=== PATIENT | female | born 1945 | race Caucasian/White ===

== ENCOUNTER → 2017-04-06 | Outpatient (CLI) | payer MEDICARE, OTHER ==
[~2017-04-06] MED LIST: LORT7.5T3 PO
[2017-04-06 14:17] LABS: BLOOD GAS BASE EXCESS 15.3 mmol/L (-2-2); BLOOD GAS CARBOXYHEMOGLOBIN 1.9 % (0-4); BLOOD GAS HCO3 40 mmol/L (22-26); BLOOD GAS METHEMOGLOBIN 1.2 % (0-2); BLOOD GAS O2 HGB SATURATION 84 % (90-100); BLOOD GAS PCO2 61 mmHg (38-42); BLOOD GAS PO2 49 mmHg (61-120); BLOOD GAS TOTAL HGB 13.6 G/DL (12.0-16.0)
[2017-04-06 14:19] LABS: CRITICAL VALUE YES; DRAW SITE LT RADIAL; FIO2 21 %; NUMBER OF ARTERIAL PUNCTURES 2; STAT YES; ULNAR PULSE PRESENT
== END ==
LOC: HRSP 13:08
DX: J44.9 Chronic obstructive pulmonary disease, unspecified (principal); R06.00 Dyspnea, unspecified
CPT/HCPCS: 36600; 82805; 94060

== ENCOUNTER 2017-04-14 10:49 | Inpatient (IN) | payer MEDICARE, OTHER ==
[2017-04-14] VITALS (11 sets, daily range): BP systolic 87–188; BP diastolic 50–85; PULSE 74–111; RESP 18–24; TEMP 96.8–97.4; O2SAT 95–100
[~2017-04-14] VITALS: Ht 157.5 cm; Wt 81.2 kg
[~2017-04-14 10:49] MED LIST changes: +ALBU0.08 INH; +ASPI-516 CHEW; +CALC600T5; +FURO1TAB62 PO; +GREE250C2; +LOSA100T PO; +MEDR4TAB PO; +METO50TA PO; +NYST1000 SWISH-SWAL; +OMEGCAP PO; +OXYGENDME NAS.CANULA; +POTA-163 PO; +SIMV20TA PO; +TIOT1AER INH; +VITA1000 PO
--- NOTE | 2017-04-14 11:51 | RADRPT ---
EXAM DATE/TIME: 04/14/2017 11:37 [facility] COMPARISON: CHEST SINGLE AP, March 16, 2017, 6:36. INDICATIONS : Shortness of breath. MEDICAL HISTORY : Hypertension. SURGICAL HISTORY : Appendectomy. ENCOUNTER: Initial ACUITY: 1 day PAIN SCORE: Non-responsive. LOCATION: Bilateral chest FINDINGS: No focal consolidation or effusion. Minimal basilar atelectasis. Heart size normal. No pneumothorax. CONCLUSION: 1. Minimal basilar atelectasis. Tim Mcarthur MD on April 14, 2017 at 11:49 Board Certified Radiologist. This report was verified electronically.
--- NOTE | 2017-04-14 11:57 | PD ---
HPI Chief Complaint: Respiratory Symptoms Time Seen by Provider: 11:14 Travel History International Travel<30 days: No Contact w/Intl Traveler<30days: No Traveled to known affect area: No History of Present Illness HPI Patient is a 72-year-old female presenting to emergency Department for evaluation of weakness, shortness of breath, edema. Family is at bedside states that she fell this morning, fall was unwitnessed patient has a contusion to her forehead. Apparently there was no loss of consciousness. Patient denies any headache at this time. She states that she feels very tired and weak. Patient has severe COPD and is oxygen dependent. Family reports that she saw her primary doctor and her Lasix was increased to twice daily but it has not helped the edema. They report discoloration on the plantar aspect of her feet from the foot pad distally. There is also some petechial discoloration to her lower leg. Patient denies any chest pain, abdominal pain, nausea, vomiting, headache, fever, chills, dysuria. Her past medical history significant for hypertension, COPD, hyperlipidemia. She is on aspirin therapy. [facility] Past Medical History Anxiety: No Depression: No Cancer: No High Cholesterol: Yes COPD: Yes (O2 dependent) Coronary Artery Disease: No Diabetes: No Diminished Hearing: No Endocrine: No Genitourinary: Yes Hypertension: Yes Immune Disorder: No Kidney Stones: Yes Medical other: Yes (peripheral edema) Musculoskeletal: No Neurologic: No Psychiatric: No Reproductive: No Respiratory: Yes ?: Not Past Surgical History Abdominal Surgery: Yes (hernia repair) Appendectomy: Yes Family History Family Hypercholesterolemia: Yes Social History Alcohol Use: No Tobacco Use: No Substance Use: No Allergies-Medications (Allergen,Severity, Reaction): Coded Allergies: prednisone (Verified Allergy, Mild, Rash, 04/11/17) Reported Meds & Prescriptions Reported Meds & Active Scripts Active Nystatin Liq 100,000 unit/ml Susp 5 Ml SWISH-SWAL QID Use for 7 days. Potassium Chloride ER (Potassium Chloride) 20 Meq Tab 20 Meq PO DAILY Metoprolol Tartrate 50 Mg Tab 50 Mg PO BID Losartan (Losartan Potassium) 100 Mg Tab 100 Mg PO DAILY Medrol (Methylprednisolone) 4 Mg Tab 4 Mg PO DAILY 4 tablets bid x 4 days then 3 tablets bid x 4 days 2 tablets bid x 3 days 1 tablet bid x 3 days then 1 tablet daily x 5 days Oxygen (O2) Device Liter JASEN.CANULA CONTINUOUS Oxygen Concentrator Portable Gaseous 2 L/min via Nasal Canula Continuous For 99 months Albuterol Neb (Albuterol Sulfate) 2.5 Mg/3 Ml Neb 2.5 Mg INH Q2HR NEB PRN MDD 4 30 Days As directed Reported Lasix (Furosemide) 20 Mg Tab 20 Mg PO BID Xanax (Alprazolam) 0.25 Mg Tab 0.25 Mg PO TID PRN Stiolto Respimat Inh (Tiotropium-Olodaterol Inh) 2.5-2.5 Mcg/Act Aero 2 Puff INH DAILY Green Tea (Green Tea [place] Extract) 250 Mg Capsule 500 BID Vitamin D-1000 (Cholecalciferol) 1,000 Unit Tab 2,000 Units PO DAILY [place]-3 Fish Oil/Vitamin (Fish Oil-Cholecalciferol) 1,000-1,000 Mg Cap 1 Cap PO DAILY Calcium (Calcium Carbonate) 600 Mg Calcium (1500 Mg) Tab BID Aspirin 81 Mg Chew 81 Mg CHEW HS Simvastatin 20 Mg Tab 20 Mg PO DAILY Review of Systems Except as stated in HPI: all other systems reviewed are Neg General / Constitutional: No: Fever, Chills HENT: No: Headaches Cardiovascular: No: Chest Pain or Discomfort Respiratory: Positive: Shortness of Breath, Orthopnea, No: Cough Gastrointestinal: No: Nausea, Abdominal Pain Genitourinary: No: Dysuria Musculoskeletal: Positive: Edema, No: Myalgias Skin: Positive Change in Pigmentation Neurologic: Positive: Weakness, No: Dizziness, Headache, Change in Mentation Hematologic/Lymphatic: Positive: Easy Bruising Physical Exam Narrative GENERAL: Overweight, well-developed, chronically ill-appearing female. SKIN: Warm and dry. Petechial rash to lateral aspect of right lower leg and left lower leg. Weeping. HEAD: Atraumatic. Normocephalic. EYES: Pupils equal and round. No scleral icterus. No injection or drainage. ENT: No nasal bleeding or discharge. Mucous membranes pink and moist. NECK: Trachea midline. No JVD. CARDIOVASCULAR: Regular rate and rhythm. RESPIRATORY: Tachypneic, diaphragmatic breathing, tripod positioning. Diminished throughout. No wheezes, rhonchi, rales noted. GASTROINTESTINAL: Abdomen soft, non-tender, nondistended. Hepatic and splenic margins not palpable. MUSCULOSKELETAL: Extremities without clubbing, cyanosis. 1+ pitting edema to bilateral lower extremities. No obvious deformities. Bruising noted to bilateral plantar aspects of her feet from the foot pad distally. 2+ dorsalis pedal pulses bilaterally. Brisk less than 3 second capillary refill. NEUROLOGICAL: Awake and alert. No obvious cranial nerve deficits. Motor grossly within normal limits. Five out of 5 muscle strength in the arms and legs. Normal speech. PSYCHIATRIC: Appropriate mood and affect; insight and judgment normal. Data Data Last Documented VS Vital Signs Date Time Temp Pulse Resp B/P (MAP) Pulse Ox O2 Delivery O2 Flow Rate FiO2 04/14/17 14:00 76 24 135/76 (95) 100 BiPAP 60 04/14/17 12:00 2.00 04/14/17 10:53 96.8 Orders Orders Complete Blood Count With Diff (04/14/17 11:24) Comprehensive Metabolic Panel (04/14/17 11:24) B-Type Natriuretic Peptide (04/14/17 11:24) Magnesium (Mg) (04/14/17 11:24) Urinalysis - C+S If Indicated (04/14/17 11:24) Iv Access Insert/Monitor (04/14/17 11:24) Electrocardiogram (04/14/17 11:24) Ecg Monitoring (04/14/17 11:24) Oximetry (04/14/17 11:24) Oxygen Administration (04/14/17 11:24) Chest, Single Ap (04/14/17 11:24) Sodium Chloride 0.9% Flush (Ns Flush) (04/14/17 11:30) Albuterol-Ipratropium Neb (Duoneb Neb) (04/14/17 11:30) Cath For Specimen (04/14/17 11:24) Ct Brain W/O Iv Contrast(Rout) (04/14/17 ) Ct Cerv Spine W/O Contrast (04/14/17 ) Lactic Acid (04/14/17 11:25) Arterial Blood Gas (Abg) (04/14/17 ) Blood Culture (04/14/17 11:25) Budesonide Neb (Pulmicort Respule Neb) (04/14/17 12:00) Methylprednisolone So Succ Inj (Solumedr (04/14/17 12:00) Sodium Chloride 0.9% Flush (Ns Flush) (04/14/17 12:30) Resp Bipap / Cpap Non Invas Vt (04/14/17 12:26) Arterial Blood Gas (Abg) (04/14/17 13:15) Sodium Chlor 0.9% 1000 Ml Inj (Ns 1000 M (04/14/17 12:45) Sodium Chlorid 0.9% 500 Ml Inj (Ns 500 M (04/14/17 12:45) Sodium Chlor 0.9% 1000 Ml Inj (Ns 1000 M (04/14/17 12:45) Magnesium Sulfate 1 Gm Premix (Magnesium (04/14/17 12:45) Dext 5%-Nacl 0.45% 1000 Ml Inj (D5w-1/2 (04/14/17 13:45) Admit Order (Ed Use Only) (04/14/17 14:03) Labs Laboratory Tests Test 04/14/17 11:45 04/14/17 11:55 04/14/17 12:10 White Blood Count 7.1 TH/MM3 Red Blood Count 4.50 MIL/MM3 Hemoglobin 14.1 GM/DL Hematocrit 40.7 % Mean Corpuscular Volume 90.5 FL Mean Corpuscular Hemoglobin 31.2 PG Mean Corpuscular Hemoglobin Concent 34.5 % Red Cell Distribution Width 15.1 % Platelet Count 222 TH/MM3 Mean Platelet Volume 7.6 FL Neutrophils (%) (Auto) 86.2 % Lymphocytes (%) (Auto) 3.9 % Monocytes (%) (Auto) 7.8 % Eosinophils (%) (Auto) 1.9 % Basophils (%) (Auto) 0.2 % Neutrophils # (Auto) 6.1 TH/MM3 Lymphocytes # (Auto) 0.3 TH/MM3 Monocytes # (Auto) 0.6 TH/MM3 Eosinophils # (Auto) 0.1 TH/MM3 Basophils # (Auto) 0.0 TH/MM3 CBC Comment DIFF FINAL Differential Comment Blood Urea Nitrogen 14 MG/DL Creatinine 0.72 MG/DL Random Glucose 105 MG/DL Total Protein 6.5 GM/DL Albumin 3.0 GM/DL Calcium Level 9.1 MG/DL Magnesium Level 1.4 MG/DL Alkaline Phosphatase 60 U/L Aspartate Amino Transf (AST/SGOT) 36 U/L Alanine Aminotransferase (ALT/SGPT) 37 U/L Total Bilirubin 0.6 MG/DL Sodium Level 117 MEQ/L Potassium Level 4.7 MEQ/L Chloride Level 70 MEQ/L Carbon Dioxide Level 44.5 MEQ/L Anion Gap 3 MEQ/L Estimat Glomerular Filtration Rate 80 ML/MIN Lactic Acid Level 0.6 mmol/L B-Type Natriuretic Peptide 76 PG/ML Urine Color LIGHT-YELLOW Urine Turbidity HAZY Urine pH 7.0 Urine Specific [place] 1.008 Urine Protein NEG mg/dL Urine Glucose (UA) NEG mg/dL Urine Ketones NEG mg/dL Urine Occult Blood NEG Urine Nitrite NEG Urine Bilirubin NEG Urine Urobilinogen LESS THAN 2.0 MG/DL Urine Leukocyte Esterase NEG Urine RBC 1 /hpf Urine WBC 2 /hpf Urine Amorphous Sediment FEW Urine Bacteria RARE /hpf Urine Hyaline Casts 3 /lpf Microscopic Urinalysis Comment CULT NOT INDICATED Blood Gas Puncture Site RT RADIAL Blood Gas Patient Temperature 37.0 Blood Gas HCO3 48 mmol/L Blood Gas Base Excess 20.0 mmol/L Blood Gas Oxygen Saturation 96 % Arterial Blood pH 7.28 Arterial Blood Partial Pressure CO2 105 mmHg Arterial Blood Partial Pressure O2 119 mmHG Arterial Blood Oxygen Content 17.5 Vol % Arterial Blood Carboxyhemoglobin 1.6 % Arterial Blood Methemoglobin 0.8 % Blood Gas Hemoglobin 12.8 G/DL Oxygen Delivery Device NASAL CANNULA Blood Gas Liter Flow 2 L/M MDM Medical Decision Making Medical Screen Exam Complete: Yes Emergency Medical Condition: Yes Medical Record Reviewed: Yes Interpretation(s) Vital Signs Date Time Temp Pulse Resp B/P (MAP) Pulse Ox O2 Delivery O2 Flow Rate FiO2 04/14/17 11:37 96 Nasal Cannula 2.00 04/14/17 11:09 16 04/14/17 10:53 96.8 74 18 188/85 (119) 96 Differential Diagnosis COPD exacerbation versus CHF versus respiratory failure versus metabolic abnormality versus pneumonia versus less likely PE versus other Narrative Course Patient presented for evaluation after a fall. She's had several days of increasing weakness, peripheral edema, shortness of breath. She was evaluated by her primary doctor, Dr. Toure on the and she had been evaluated by her circulation crew leader Dr. Parekh prior to that who increased her Lasix to 20 mg twice daily she was also prescribed Xanax to help her sleep. Upon review of medical records patient was noted to have severe COPD during her last admission at the end of February. She has been on oxygen as needed but has been using it 24 hours a day. Labs and imaging ordered and pending. Patient's vital signs are stable, IV access established, patient placed on telemetry monitoring continuous pulse oximetry. EKG shows sinus rhythm. This was reviewed by my attending physician. Chest x-ray which is read by the radiologist shows minimal basilar atelectasis. ABG with CO2 retention, patient will be placed on BiPAP 12/5, order placed per Dr. Rojas my attending physician. We'll repeat ABG after 30 minutes. Chemistry returned with a sodium of 117. Patient will be given a 500 cc bolus of normal saline, she will then receive normal saline at 125 an hour. CBC with no acute abnormalities Lactic acid 0.6 Magnesium 1.4, IV replacement ordered. Urinalysis is unremarkable. Discussed findings with Dr. Cain, facility maintenance worker. Patient will be admitted to [facility]. She recommended changing IVF to D5 1/2 NS at 125 ml/hr. Order placed. Paged [facility] for admit. She stated she will follow patient as well. Discussed with Dr. Auguste who accepted admit, admit orders place. Family and patient advised of plan and initial findings. Repeat ABG with CO2 of 120. Pt was drowsy despite Bipap. After the risks and benefits were discussed the following procedure was performed: INTUBATION: The patient was put in optimal position for the procedure. Rapid sequence intubation was initiated by me and my attending physician Dr. Rojas, using 20 milligrams of etomidate IV and 100 milligrams of succinylcholine IV. The patient was intubated with a 7.5 cuffed endotracheal tube. Tube placement was confirmed by visualization of the tube and balloon passing through the cords , capnometry and subsequent chest x-ray. Breath sounds were equal and well aerated bilaterally postintubation. No breath sounds over stomach. Patient tolerated procedure well. Repeat CXR pending. Propofol drip ordered for sedation [address] Whitmore to update intensivists on patient's condition. 1645 Discussed patient presentation and findings as well as updated him on the intubation. He stated he will see the patient. Critical Care Narrative Critical Care: The total critical care time was 30 minutes. Time to perform other separately billable procedures was not included in the critical care time. Diagnosis Primary Impression: Hyponatremia Additional Impressions: Hypomagnesemia Weakness Acute and chronic respiratory failure COPD (chronic obstructive pulmonary disease) Qualified Codes: J44.1 - Chronic obstructive pulmonary disease with (acute) exacerbation Admitting Information Admitting Physician Requests: Admit Condition: Stable Stefani Brown Apr 14, 2017 11:57
[2017-04-14] MEDS ORDERED: RESP: BUDESONIDE 0.5 MG/2 ML NEB NEB ONE (12:00)
[2017-04-14] MEDS ORDERED: methylPREDNISolone SOD SUCC 125 MG/2 ML VIAL IV PUSH ONE (12:00)
[2017-04-14] MEDS: SODIUM CHLORIDE 0.9% FLUSH 10 ML FLUSH IVF PRN (12:07)
[2017-04-14 12:09] LABS: AUTOMATED NEUTROPHIL # 6.1 TH/MM3 (1.8-7.7); BASOPHIL % 0.2 % (0.0-2.0); EOSINOPHIL # 0.1 TH/MM3 (0-0.4); EOSINOPHIL % 1.9 % (0.0-4.0); HEMATOCRIT 40.7 % (35.0-46.0); HEMO FLAGS DIFF FINAL; LYMPH % 3.9 % (9.0-44.0); LYMPHOCYTE # 0.3 TH/MM3 (1.0-4.8); MEAN CELL VOLUME 90.5 FL (80.0-100.0); MEAN CORPUSCULAR HEMOGLOBIN 31.2 PG (27.0-34.0); MEAN CORPUSCULAR HGB CONC 34.5 % (32.0-36.0); MONO % 7.8 % (0.0-8.0); NEUT % 86.2 % (16.0-70.0); PLATELET COUNT 222 TH/MM3 (150-450); RED CELL DISTRIBUTION WIDTH 15.1 % (11.6-17.2); WHITE BLOOD COUNT 7.1 TH/MM3 (4.0-11.0)
[2017-04-14] MEDS: RESP: ALBUTEROL 2.5 MG/IPRATROPIUM 0.5 MG NEB (SCH) INH (12:09)
[2017-04-14] MEDS ORDERED: ALPR.25 PO (12:11)
[2017-04-14] MEDS ORDERED: FURO1TAB62 PO (12:11)
[2017-04-14 12:20] LABS: BLOOD GAS CARBOXYHEMOGLOBIN 1.6 % (0-4); BLOOD GAS HCO3 48 mmol/L (22-26); BLOOD GAS METHEMOGLOBIN 0.8 % (0-2); BLOOD GAS O2 HGB SATURATION 96 % (90-100); BLOOD GAS OXYGEN CONTENT 17.5 Vol % (12.0-20.0); BLOOD GAS PCO2 105 mmHg (38-42); BLOOD GAS PO2 119 mmHG (61-120); BLOOD GAS TOTAL HGB 12.8 G/DL (12.0-16.0); CRITICAL VALUE YES; DRAW SITE RT RADIAL; LITER FLOW 2 L/M; NUMBER OF ARTERIAL PUNCTURES 1; OXYGEN DEVICE NASAL CANNULA; STAT YES; ULNAR PULSE PRESENT
[2017-04-14 12:26] LABS: BACTERIA, URINE RARE /hpf; BLOOD, URINE NEG (NEG); GLUCOSE,URINE NEG (NEG); HYALINE CAST, URINE 3 /lpf (RARE); KETONE, URINE NEG (NEG); NITRITE,URINE NEG (NEG); URINE COLOR LIGHT-YELLOW (YELLW/STRAW)
[2017-04-14 12:28] LABS: COMMENT (UR) CULT NOT INDICATED; CULTURE IF INDICATED CULT NOT INDICATED
[2017-04-14] MEDS ORDERED: SODIUM CHLORIDE 0.9% FLUSH 10 ML FLUSH IVF PRN (12:30)
[2017-04-14 12:35] LABS: ALKALINE PHOSPHATASE 60 U/L (45-117); ALT (GPT) 37 U/L (10-53); ANION GAP 3 MEQ/L (5-15); BICARBONATE 44.5 MEQ/L (21.0-32.0); BLOOD UREA NITROGEN 14 MG/DL (7-18); CHLORIDE 70 MEQ/L (98-107); GLOMERULAR FILTRATION RATE 80 ML/MIN (>89); MAGNESIUM 1.4 MG/DL (1.5-2.5); TOTAL BILIRUBIN ADULT 0.6 MG/DL (0.2-1.0)
[2017-04-14 12:36] LABS: AST (GOT) 36 U/L (15-37); POTASSIUM 4.7 MEQ/L (3.5-5.1)
[2017-04-14 12:38] LABS: SODIUM (NA) 117 MEQ/L (136-145)
[2017-04-14] MEDS ORDERED: MAGNESIUM SULFATE 1 GM PREMIX 100 ML IV ONE (12:45)
[2017-04-14] MEDS ORDERED: SODIUM CHLORID 0.9% 500 ML INJ 500 ML IV ONE (12:45)
[2017-04-14] MEDS ORDERED: SODIUM CHLOR 0.9% 1000 ML INJ 1,000 ML IV ONE (12:45)
[2017-04-14] MEDS ORDERED: SODIUM CHLOR 0.9% 1000 ML INJ 1,000 ML IV SCH (12:45)
--- NOTE | 2017-04-14 13:33 | RADRPT ---
EXAM DATE/TIME: 04/14/2017 13:18 [facility] COMPARISON: No previous studies available for comparison. INDICATIONS : Head pain due to fall. RADIATION DOSE: 32.43 CTDIvol (mGy) MEDICAL HISTORY : Cardiovascular disease. Congestive heart failure. Hypertension. SURGICAL HISTORY : Appendectomy. ENCOUNTER: Initial ACUITY: 1 day PAIN SCALE: Non-responsive LOCATION: Bilateral cranial TECHNIQUE: Multiple contiguous axial images were obtained of the head. Using automated exposure control and adj ustment of the mA and/or kV according to patient size, radiation dose was kept as low as reasonably a chievable to obtain optimal diagnostic quality images. DICOM format image data is available electro nically for review and comparison. FINDINGS: CEREBRUM: The ventricles are normal for age. No evidence of midline shift, mass lesion, hemorrhage or acute in farction. No extra-axial fluid collections are seen. POSTERIOR FOSSA: The cerebellum and brainstem are intact. The 4th ventricle is midline. The cerebellopontine angle i s unremarkable. EXTRACRANIAL: The visualized portion of the orbits is intact. SKULL: The calvaria is intact. No evidence of skull fracture. CONCLUSION: Normal examination for a patient of this age. No significant change has occurred. Tim Mcarthur MD on April 14, 2017 at 13:30 Board Certified Radiologist. This report was verified electronically.
[2017-04-14] MEDS ORDERED: DEXT 5%-NACL 0.45% 1000 ML INJ 1,000 ML IV SCH (13:45)
--- NOTE | 2017-04-14 13:50 | RADRPT ---
EXAM DATE/TIME: 04/14/2017 13:18 [facility] COMPARISON: No previous studies available for comparison. INDICATIONS : Neck pain due to fall. RADIATION DOSE: 17.11 CTDIvol (mGy) MEDICAL HISTORY : Hypertension. Cardiovascular disease Congestive heart failure. SURGICAL HISTORY : Appendectomy. ENCOUNTER: Initial ACUITY: 1 day PAIN SCALE: Non-responsive LOCATION: Bilateral neck region. TECHNIQUE: Volumetric scanning of the cervical spine was performed. Multiplanar reconstructions in the sagittal, coronal and oblique axial planes were performed. Using automated exposure control and adjustment o f the mA and/or kV according to patient size, radiation dose was kept as low as reasonably achievable to obtain optimal diagnostic quality images. DICOM format image data is available electronically f or review and comparison. FINDINGS: There is moderate degenerative disc disease in the lower cervical spine. Moderate facet arthropathy. No acute fracture. Mild AP canal stenosis at C4-5-6-7. CONCLUSION: 1. No acute fracture. Moderate degenerative disc disease in the lower cervical spine with mild AP can al stenosis as above. Tim Mcarthur MD on April 14, 2017 at 13:45 Board Certified Radiologist. This report was verified electronically.
--- NOTE | 2017-04-14 14:18 | EKG ---
Date Performed: 04/14/2017 Time Performed: 11:43:58 PTAGE: 72 years EKG: Sinus rhythm MULTIPLE LEADS WITH ST ELEVATION, PROBABLY EARLY REPOLARIZATION VS PERICARDITIS BORDERLINE ECG PREVIOUS TRACING : 03/15/2017 15.58 Compared to prior tracing no significant change DOCTOR: Leroy Quevedo Interpretating Date/Time 04/14/2017 14:17:22
--- NOTE | 2017-04-14 14:42 | HHI.HP ---
[facility] Laura Toure MD Admission Diagnosis COPD EXACERBATION, HYPONATREMIA Diagnoses: (1) Acute and chronic respiratory failure Diagnosis: Principal (2) Hyponatremia Diagnosis: Principal Chief Complaint: ' worsening generalized weakness and lethargy'. Travel History International Travel<30 Days: No Contact w/Intl Traveler <30 Da: No Traveled to Known Affected Are: No History of Present Illness patient is a 72 y/o female with history of COPD, oxygen dependent, hypertension and dyslipidemia who was brought to ER with worsening generalized weakness and sob. patient is lethargic, on BiPaP, and most of the information was obtained from the family at the bedside. she was admitted to this hospital about a month ago for COPD exacerbation and was discharged home. per the family over the past few weeks ' she's been getting worse '. she's had worsening weakness to the extent that she wasn't able to get out of the bed. in fact she reportedly had an unwitnessed fall earlier today; she was found sitting on the floor at the time. she uses ' oxygen as needed' although per the family she had to use her oxygen ' all the time' for the past two weeks. she's been lethargic recently and per the family she wasn't eating or drinking for the past few days. apparently because of the worsening edema of the legs , the dosage of her lasix was increased with no significant improvement.she was placed for BiPaP at the time of presentation to ER. Review of Systems ROS Limitations: Altered Mental Status, Poor Historian Past Family Social History Past Medical History COPD hypertension dyslipidemia Past Surgical History appendectomy hernia repair Reported Medications Nystatin Liq 100,000 unit/ml Susp 5 Ml SWISH-SWAL QID Use for 7 days. Potassium Chloride ER (Potassium Chloride) 20 Meq Tab 20 Meq PO DAILY Metoprolol Tartrate 50 Mg Tab 50 Mg PO BID Losartan (Losartan Potassium) 100 Mg Tab 100 Mg PO DAILY Medrol (Methylprednisolone) 4 Mg Tab 4 Mg PO DAILY 4 tablets bid x 4 days then 3 tablets bid x 4 days 2 tablets bid x 3 days 1 tablet bid x 3 days then 1 tablet daily x 5 days Oxygen (O2) Device Liter JASEN.CANULA CONTINUOUS Oxygen Concentrator Portable Gaseous 2 L/min via Nasal Canula Continuous For 99 months Albuterol Neb (Albuterol Sulfate) 2.5 Mg/3 Ml Neb 2.5 Mg INH Q2HR NEB PRN MDD 4 30 Days As directed Reported Lasix (Furosemide) 20 Mg Tab 20 Mg PO BID Xanax (Alprazolam) 0.25 Mg Tab 0.25 Mg PO TID PRN Stiolto Respimat Inh (Tiotropium-Olodaterol Inh) 2.5-2.5 Mcg/Act Aero 2 Puff INH DAILY Green Tea (Green Tea [place] Extract) 250 Mg Capsule 500 BID Vitamin D-1000 (Cholecalciferol) 1,000 Unit Tab 2,000 Units PO DAILY [place]-3 Fish Oil/Vitamin (Fish Oil-Cholecalciferol) 1,000-1,000 Mg Cap 1 Cap PO DAILY Calcium (Calcium Carbonate) 600 Mg Calcium (1500 Mg) Tab BID Aspirin 81 Mg Chew 81 Mg CHEW HS Simvastatin 20 Mg Tab 20 Mg PO DAILY Allergies: Coded Allergies: prednisone (Verified Allergy, Mild, Rash, 04/11/17) Active Ordered Medications Current Medications Sodium Chloride (NS Flush) 2 ml UNSCH PRN IVF FLUSH AFTER USING IV ACCESS Last administered on 04/14/17 12:07; Start 04/14/17 at 11:30 Albuterol/ Ipratropium (Duoneb Neb) 1 ampule Q15M INH Last administered on 12:09; Start 04/14/17 at 11:30; Stop 04/14/17 at 11:46; Status DC Budesonide (Pulmicort Respule Neb) 0.5 mg ONCE ONCE NEB ; Start 04/14/17 at 12 :00; Stop 04/14/17 at 12:01; Status DC Methylprednisolone Sodium Succinate (SoluMEDROL INJ) 125 mg ONCE ONCE IV PUSH Last administered on 04/14/17 12:06; Start 04/14/17 at 12:00; Stop 04/14/17 at 12:01; Status DC Sodium Chloride (NS Flush) 2 ml UNSCH PRN IVF FLUSH AFTER USING IV ACCESS; Start 04/14/17 at 12:30 Sodium Chloride 1,000 ml @ 999 mls/hr BOLUS ONCE IV ; Start 04/14/17 at 12:45 ; Stop 04/14/17 at 12:45; Status DC Sodium Chloride 500 ml @ 500 mls/hr BOLUS ONCE IV Last administered on 12:44; Start 04/14/17 at 12:45; Stop 04/14/17 at 13:44; Status DC Sodium Chloride 1,000 ml @ 125 mls/hr Q8H IV Last administered on 04/14/17 12:44; Start 04/14/17 at 12:45; Stop 04/14/17 at 13:37; Status DC Magnesium Sulfate/ Dextrose 100 ml @ 100 mls/hr ONCE ONCE IV Last administered on 04/14/17 13:14; Start 04/14/17 at 12:45; Stop 04/14/17 at 13 :44; Status DC Dextrose/Sodium Chloride 1,000 ml @ 125 mls/hr Q8H IV ; Start 04/14/17 at 13: 45 Social History quit smoking years ago- doesn't drink. lives alone. Physical Exam Vital Signs Vital Signs Date Time Temp Pulse Resp B/P (MAP) Pulse Ox O2 Delivery O2 Flow Rate FiO2 04/14/17 14:00 76 24 135/76 (95) 100 BiPAP 60 04/14/17 12:50 97 40 04/14/17 12:39 100 BiPAP 60 04/14/17 12:39 Nasal Cannula 04/14/17 12:00 74 22 159/78 (105) 96 Nasal Cannula 2.00 04/14/17 11:37 96 Nasal Cannula 2.00 04/14/17 11:15 95 Nasal Cannula 2.00 04/14/17 11:15 20 95 Nasal Cannula 2.00 04/14/17 11:09 16 04/14/17 10:53 96.8 74 18 188/85 (119) 96 Physical Exam GENERAL: lethargic- on BiPaP SKIN: No rashes, ecchymoses or lesions. Cool and dry. HEAD: Atraumatic. Normocephalic. No temporal or scalp tenderness. EYES: Pupils equal round and reactive. Extraocular motions intact. No scleral icterus. No injection or drainage. ENT: Nose without bleeding, purulent drainage or septal hematoma. Throat without erythema, tonsillar hypertrophy or exudate. Uvula midline. Airway patent. NECK: Trachea midline. No JVD or lymphadenopathy. Supple, nontender, no meningeal signs. CARDIOVASCULAR: Regular rate and rhythm without murmurs, gallops, or rubs. RESPIRATORY: diminished air entry in bases. GASTROINTESTINAL: Abdomen soft, non-tender, nondistended. No hepato-splenomegaly , or palpable masses. No guarding. MUSCULOSKELETAL: Extremities with bilateral pedal edema. NEUROLOGICAL: lethargic but arousable- knows that she's in the hospital- not oriented to the time. Laboratory Laboratory Tests Test 04/14/17 11:45 04/14/17 11:55 04/14/17 12:10 White Blood Count 7.1 Red Blood Count 4.50 Hemoglobin 14.1 Hematocrit 40.7 Mean Corpuscular Volume 90.5 Mean Corpuscular Hemoglobin 31.2 Mean Corpuscular Hemoglobin Concent 34.5 Red Cell Distribution Width 15.1 Platelet Count 222 Mean Platelet Volume 7.6 Neutrophils (%) (Auto) 86.2 Lymphocytes (%) (Auto) 3.9 Monocytes (%) (Auto) 7.8 Eosinophils (%) (Auto) 1.9 Basophils (%) (Auto) 0.2 Neutrophils # (Auto) 6.1 Lymphocytes # (Auto) 0.3 Monocytes # (Auto) 0.6 Eosinophils # (Auto) 0.1 Basophils # (Auto) 0.0 CBC Comment DIFF FINAL Differential Comment Blood Urea Nitrogen 14 Creatinine 0.72 Random Glucose 105 Total Protein 6.5 Albumin 3.0 Calcium Level 9.1 Magnesium Level 1.4 Alkaline Phosphatase 60 Aspartate Amino Transf (AST/SGOT) 36 Alanine Aminotransferase (ALT/SGPT) 37 Total Bilirubin 0.6 Sodium Level 117 Potassium Level 4.7 Chloride Level 70 Carbon Dioxide Level 44.5 Anion Gap 3 Estimat Glomerular Filtration Rate 80 Lactic Acid Level 0.6 B-Type Natriuretic Peptide 76 Urine Color LIGHT-YELLOW Urine Turbidity HAZY Urine pH 7.0 Urine Specific [place] 1.008 Urine Protein NEG Urine Glucose (UA) NEG Urine Ketones NEG Urine Occult Blood NEG Urine Nitrite NEG Urine Bilirubin NEG Urine Urobilinogen LESS THAN 2.0 Urine Leukocyte Esterase NEG Urine RBC 1 Urine WBC 2 Urine Amorphous Sediment FEW Urine Bacteria RARE Urine Hyaline Casts 3 Microscopic Urinalysis Comment CULT NOT INDICATED Blood Gas Puncture Site RT RADIAL Blood Gas Patient Temperature 37.0 Blood Gas HCO3 48 Blood Gas Base Excess 20.0 Blood Gas Oxygen Saturation 96 Arterial Blood pH 7.28 Arterial Blood Partial Pressure CO2 105 Arterial Blood Partial Pressure O2 119 Arterial Blood Oxygen Content 17.5 Arterial Blood Carboxyhemoglobin 1.6 Arterial Blood Methemoglobin 0.8 Blood Gas Hemoglobin 12.8 Oxygen Delivery Device NASAL CANNULA Blood Gas Liter Flow 2 Date/Time Source Procedure Growth Status 04/14/17 11:50 Blood Peripheral Aerobic Blood Culture Pending Received 04/14/17 11:50 Blood Peripheral Anaerobic Blood Culture Pending Received Result Diagram: 04/14/17 1145 04/14/17 1145 Imaging Last Impressions Chest X-Ray 04/14/17 1124 Signed Impressions: Service Date/Time: Friday, April 14, 2017 11:37 - CONCLUSION: 1. Minimal basilar atelectasis. Tim Mcarthur MD Head CT 04/14/17 0000 Signed Impressions: Service Date/Time: Friday, April 14, 2017 13:18 - CONCLUSION: Normal examination for a patient of this age. No significant change has occurred. Tim Mcarthur MD Cervical Spine CT 04/14/17 0000 Signed Impressions: Service Date/Time: Friday, April 14, 2017 13:18 - CONCLUSION: 1. No acute fracture. Moderate degenerative disc disease in the lower cervical spine with mild AP canal stenosis as above. Tim Mcarthur MD EKG; sinus rhythm Caprini VTE Risk Assessment Caprini VTE Risk Assessment: Mod/High Risk (score >= 2) Caprini Risk Assessment Model Point Value = 1 Point Value = 2 Point Value = 3 Point Value = 5 Age 41-60 Minor surgery BMI > 25 kg/m2 Swollen legs Varicose veins or History of unexplained or recurrent spontaneous Oral contraceptives or hormone replacement Sepsis (< 1 month) Serious lung disease, including pneumonia (< 1 month) Abnormal pulmonary function Acute myocardial infarction Congestive heart failure (< 1 month) History of inflammatory bowel disease Medical patient at bed rest Age 61-74 Arthroscopic surgery Major open surgery (> 45 min) Laparoscopic surgery (> 45 min) Malignancy Confined to bed (> 72 hours) Immobilizing plaster cast Central venous access Age >= 75 History of VTE Family history of VTE Factor V Leiden Prothrombin [id number] Lupus anticoagulant Anticardiolipin antibodies Elevated serum homocysteine Heparin-induced thrombocytopenia Other congenital or acquired thrombophilia Stroke (< 1 month) Elective arthroplasty Hip, pelvis, or leg fracture Acute spinal cord injury (< 1 month) Prophylaxis Regimen Total Risk Factor Score Risk Level Prophylaxis Regimen 0-1 Low Early ambulation 2 Moderate Order ONE of the following: *Sequential Compression Device (SCD) *Heparin 5000 units SQ BID 3-4 Higher Order ONE of the following medications: *Heparin 5000 units SQ TID *Enoxaparin/Lovenox 40 mg SQ daily (WT < 150 kg, CrCl > 30 mL/min) *Enoxaparin/Lovenox 30 mg SQ daily (WT < 150 kg, CrCl > 10-29 mL/min) *Enoxaparin/Lovenox 30 mg SQ BID (WT < 150 kg, CrCl > 30 mL/min) AND/OR *Sequential Compression Device (SCD) 5 or more Highest Order ONE of the following medications: *Heparin 5000 units SQ TID (Preferred with Epidurals) *Enoxaparin/Lovenox 40 mg SQ daily (WT < 150 kg, CrCl > 30 mL/min) *Enoxaparin/Lovenox 30 mg SQ daily (WT < 150 kg, CrCl > 10-29 mL/min) *Enoxaparin/Lovenox 30 mg SQ BID (WT < 150 kg, CrCl > 30 mL/min) AND *Sequential Compression Device (SCD) Assessment and Plan Assessment and Plan A/P - acute on chronic hypercapnic respiratory failure due to COPD exacerbation admit to ICU for close monitoring- patient is on BiPaP- will repeat ABG to monitor the progress. start neb treatment; scheduled and prn- continue with IV steroids and start on IV antibiotic. keep NPO for now; will start on diet when respiratory status improves. consult Pulmonary ( ). of note had a recent echo with EF 55%. -severe Hyponatremia- due to poor oral intake/ using lasix hold lasix for now- continue with IV fluid and monitor the sodium level closely -Hypertension; hold metoprlol for now- continue losartan- monitor and adjust the regimen as needed. -dyslipidemia; continue statin -Hypomagnesemia; replaced- check the level tomorrow. -DVT prophylaxis with subq Lovenox -will consult PT when is stable. -DNR status will monitor in ICU closely- low threshold for branch account manager consult. critical care time 35 min. Code Status DNR. Discussed Condition With ER physician and the patient's family at the bedside. Physician Certification 2 Midnight Certification Type: Admission for Inpatient Services Order for Inpatient Services The services are ordered in accordance with Medicare regulations or non- Medicare payer requirements, as applicable. In the case of services not specified as inpatient-only, they are appropriately provided as inpatient services in accordance with the 2-midnight benchmark. Estimated LOS (days): 3 days is the estimated time the patient will need to remain in the hospital, assuming treatment plan goals are met and no additional complications. Post-Hospital Plan: Not yet determined Vicki Auguste MD Apr 14, 2017 14:42
[2017-04-14] MEDS: ENOXAPARIN SODIUM 40 MG/0.4 ML SYRINGE SQ SCH (15:38)
[2017-04-14 15:45] LABS: BLOOD GAS BASE EXCESS 17.9 mmol/L (-2-2); BLOOD GAS CARBOXYHEMOGLOBIN 1.2 % (0-4); BLOOD GAS HCO3 46 mmol/L (22-26); BLOOD GAS METHEMOGLOBIN 0.9 % (0-2); BLOOD GAS O2 HGB SATURATION 98 % (90-100); BLOOD GAS OXYGEN CONTENT 18.3 Vol % (12.0-20.0); BLOOD GAS PO2 249 mmHG (61-120)
[2017-04-14 15:46] LABS: BLOOD GAS PCO2 120 mmHg (38-42); CRITICAL VALUE YES; DRAW SITE RT RADIAL; FIO2 60 %; NUMBER OF ARTERIAL PUNCTURES 1; OXYGEN DEVICE BiPAP; ULNAR PULSE PRESENT; VENT SETTINGS 12/+5/60%
[2017-04-14 15:47] LABS: STAT YES
[2017-04-14] MEDS ORDERED: SUCCINYLCHOLINE CHLORIDE 200 MG/10 ML VIAL IV PUSH ONE (16:00)
[2017-04-14] MEDS ORDERED: ETOMIDATE 20 MG/10 ML VIAL IVP ONE (16:00)
[2017-04-14] MEDS ORDERED: PROPOFOL 500 MG/50 ML INJ 50 ML ONE (16:17)
--- NOTE | 2017-04-14 16:37 | RADRPT ---
EXAM DATE/TIME: 04/14/2017 16:09 [place] COMPARISON: CHEST SINGLE AP, April 14, 2017, 11:37. INDICATIONS : Post intubation. MEDICAL HISTORY : Hypertension. SURGICAL HISTORY : Appendectomy. ENCOUNTER: Initial ACUITY: 1 day PAIN SCORE: Non-responsive. LOCATION: Bilateral chest FINDINGS: ET tube tip is 2 cm above the chandu. The lungs are symmetrically aerated. The heart is normal size . No focal infiltrates seen. Both hemidiaphragms well delineated. CONCLUSION: ET tube tip 2 cm above the chandu. Ryan Bearden MD on April 14, 2017 at 16:35 Board Certified Radiologist. This report was verified electronically.
[2017-04-14] MEDS: RESP: ALBUTEROL 2.5 MG/IPRATROPIUM 0.5 MG NEB (SCH) NEB ×2 (16:39→20:01)
[2017-04-14] MEDS: INSULIN NovoLIN REGULAR SUPPLEMENTAL SCALE SQ SCH ×3 (17:00→23:44)
[2017-04-14] MEDS ORDERED: DEXTROSE 50% IN WATER 50 ML VIAL(D50) IV PUSH PRN (17:00)
[2017-04-14] MEDS ORDERED: GLUCAGON 1 MG/ML VIAL OTHER PRN (17:00)
[2017-04-14] MEDS ORDERED: MAGNESIUM SULFATE INJ 2 GM in SODIUM CHLORIDE 0.9% INJ 96 ML IV PRN (17:15)
[2017-04-14] MEDS ORDERED: POTASSIUM PHOSPHATE MONOBASIC 500 MG TAB PO/TUBE PRN (17:15)
[2017-04-14] MEDS ORDERED: POTASSIUM CHLORIDE 25 MEQ EFFERVESCENT TAB PO PRN (17:15)
[2017-04-14] MEDS ORDERED: MAGNESIUM SULFATE INJ 4 GM in SODIUM CHLORIDE 0.9% INJ 92 ML IV PRN (17:15)
[2017-04-14] MEDS ORDERED: POTASSIUM CHLOR 20 MEQ PREMIX 100 ML IV PRN ×2 (17:15)
[2017-04-14] MEDS ORDERED: MAGNESIUM OXIDE 400 MG TAB PO PRN (17:15)
[2017-04-14] MEDS ORDERED: POTASSIUM CHLOR 40 MEQ PREMIX 100 ML IV PRN ×2 (17:15)
[2017-04-14] MEDS ORDERED: POTASSIUM PHOSPHATE MONOBASIC 500 MG TAB PO PRN (17:15)
[2017-04-14] MEDS ORDERED: POTASSIUM PHOSPHATE INJ 30 MMOL in SODIUM CHLOR 0.9% 250 ML INJ 250 ML IV PRN (17:15)
[2017-04-14] MEDS ORDERED: SODIUM PHOSPHATE INJ 30 MMOL in SODIUM CHLOR 0.9% 250 ML INJ 240 ML IV PRN (17:15)
[2017-04-14] MEDS: methylPREDNISolone SOD SUCC 40 MG/1 ML VIAL IV PUSH SCH (17:30)
[2017-04-14] MEDS: SODIUM CHLOR 0.9% 1000 ML INJ 1,000 ML IV SCH (17:30)
[2017-04-14] MEDS: LEVOFLOXACIN 250 MG PREMIX INJ 50 ML IV SCH (17:30)
[2017-04-14] MEDS ORDERED: SODIUM CHLOR 0.9% 250 ML INJ 250 ML IV ONE (17:45)
[2017-04-14] MEDS: fentaNYL DRIP 250 ML IV PRN (17:51)
--- NOTE | 2017-04-14 18:01 | MB ---
cc: BRANDY BEAL DATE OF CONSULTATION 04/14/17 1945 HISTORY OF PRESENT ILLNESS The patient is a 72-year-old female with past medical history of COPD oxygen-dependent, hypertension and dyslipidemia who presented to [facility] ED with generalized weakness, lethargy and shortness of breath. Her initial ABG on two liters oxygen showed acute hypercapnic respiratory acidosis with a pH of 7.28, CO2 105, pAO2 119, bicarb 48 and saturation of 96%. She was placed on BiPap at 12/5 with 60% FIO2 and a repeat ABG showed worsening respiratory acidosis with a pH of 7.21, CO2 120. She was subsequently intubated with etomidate and succinylcholine and placed on full mechanical ventilation. Also, she was started on a Diprivan infusion for sedation. Her laboratory data was significant for hyponatremia with a sodium level of 117. In the ED, she was given bronchodilator treatments Solu-Medrol 125 mg IV push, magnesium replacement and 500 bolus of normal saline. When seen, the patient is sedated and intubated. Her last admission was in February and, at that time, she had a sodium level of 139. The patient was initially admitted to Dr. Auguste from [facility], however, after the patient was intubated in the ED critical care medicine was consulted for critical care management. PAST MEDICAL HISTORY 1. COPD, 2. Hypertension, 3. Dyslipidemia. PAST SURGICAL HISTORY 1. Previous appendectomy 2. Hernia repair. ALLERGIES PREDNISONE MEDICATIONS Reported medications 1. Lasix. 2. Xanax 3. Vitamin D 4. [place] 3 calcium 5. Aspirin. 6. Simvastatin. SOCIAL HISTORY Quit smoking years ago, nondrinker. Lives alone. REVIEW OF SYSTEMS As per HPI. The rest of the review of system unobtainable as the patient is intubated. PHYSICAL EXAMINATION GENERAL: A 72-year-old female intubated for respiratory failure. VITAL SIGNS: Afebrile. pulse of 95, blood pressure 99/52, sats 98%, vent setting assist control rate of 12, tidal volume 450, PEEP five, FIO2 30%. HEENT: Atraumatic, normocephalic. Pupil equal and reactive to light and accommodation. Extraocular muscles intact. Conjunctivae pink. Nonicteric sclerae. Oral mucosa within normal. NECK: Supple. No JVD, adenopathy OR thyromegaly. Trachea in the midline. Orally intubated. CARDIOVASCULAR: Regular rate and rhythm. Normal S1-S2. No murmurs, rubs or gallops noted. PULMONARY: Bilateral equal entry, overall diminished. ABDOMEN: Soft, nontender, no distension. Positive bowel sounds. EXTREMITIES: No cyanosis, clubbing or edema. NEUROLOGIC: Intubated and sedated. LABORATORY DATA WBC 7.1, hemoglobin 14, hematocrit 40, platelet count of 222, Sodium 117, potassium 4.7, chloride 70, CO2 44, BUN 14, creatinine 0.72, glucose 105, lactic acid 0.6, magnesium 1.4, AST 36, ALT 37, alk phos 60, Urinalysis negative for leukocyte esterase, nitrate, 2 WBCs. IMAGING STUDIES ET tube 2 cm above the chandu, minimal basilar atelectasis. CT scan of the brain - no acute intracranial findings. She also had cervical spine CT which showed no acute fracture. CARDIOLOGY STUDIES EKG sinus rhythm, rate 71 beats per minute. IMPRESSION 1. Acute hypercapnic respiratory acidosis requiring intubation. 2. COPD exacerbation oxygen-dependent 3. Hyponatremia 4. Hyperlipidemia RECOMMENDATIONS 1. On Diprivan infusion for sedation. We will add fentanyl drip for sedation and vent synchrony if needed. 2. CT scan of the brain in the ED negative for acute intracranial process. 3. Continue with vent support and maintain sats above 92%. 4. Bronchodilators in the form of DuoNeb q. 4 plus q. two p.r.n. for shortness of breath. We will initiate ICU vent bundle and continue with Solu-Medrol 40 mg IV q. eight. 5. Increase respiratory rate to 16, tidal volume to 550 and repeat ABG. 6. Monitor heart rate and blood pressure closely and maintain MAP greater than 65 mmHg. She had echocardiogram in February which showed an EF of 55-60%. Continue with aspirin 81 mg daily, Pravachol 40 mg daily. 7. Monitor renal function Is and Os and electrolyte replacement per protocol. The patient was given magnesium replacement in the ED. We will give Diamox 250 mg IV x1. 8. Check serum and urine osmolality along with TSH level. Change IV fluids NS at 75 mL an hour. She was given NS 500 bolus in the ED. We will monitor sodium level q. 4-hour. Avoid over correction of sodium and maximum 9 mEq in 24 hours. 9. Continue with empiric antibiotics in the form of Levaquin for COPD exacerbation and monitor for signs of infections which include fever and WBC. 10. Place on Pepcid 10 mg IV q. 12 for GI prophylaxis. Start tube feeds within 24 hours if the patient remains intubated. 11. Sliding scale insulin with Accu-Chek q. 4-hour for glycemic control as patient will be on IV steroids. 12. Monitor CBC. 13. GI prophylaxis with Pepcid and DVT prophylaxis with SCDs. In addition, the patient was placed on Lovenox 40 mg subcu daily. Further recommendations will be based on hospital course. MD VICTORINO Moore/ /5:13 PM /5:35 PM
--- NOTE | 2017-04-14 18:11 | MB ---
cc: ROLAN GRANDE DATE OF CONSULTATION 04/14/[address] Auguste REASON FOR CONSULTATION Evaluation for respiratory failure. HISTORY OF PRESENT ILLNESS Mrs. Judd is a 89-year-old white female with history of severe COPD. The patient was sent to the hospital after an episode of shortness of breath, feeling lethargic and a witnessed fall. She had a bruise on her head. She was evaluated in the emergency room with WBC count 7.1, hemoglobin 14.1, hematocrit 40, MCV 90, platelet count 222, sodium 117, potassium 4.7, chloride 70, CO2 44.5, BUN 14, creatinine 0.72. Initial blood gas pH 7.28, PCO2 105 and pO2 119. She was intubated and put on ventilator. Blood gas on 60% FIO2 pH 7.1, pCO2 120, pO2 249. Currently, her ventilator setting is changed to rate of 18 and FIO2 decreased to 30%. Currently, she is in intensive care unit. Her blood pressure is low after starting her on Diprivan. PAST MEDICAL HISTORY Significant for history of COPD, hypertension, dyslipidemia. History of hernia surgery, appendectomy. MEDICATIONS She is currently takin. Pravastatin 40 milligrams a day. 2. Solu-Medrol 40 milligrams q. 8-hours. 3. Famotidine 10 milligrams. 4. Diamox 250 milligrams. 5. Potassium supplement. 6. Albuterol/Atrovent nebulizer treatment. 7. Levaquin IV. 8. Lovenox 40 milligrams a day. ALLERGIES SHE IS ALLERGIC TO PREDNISONE. SOCIAL/FAMILY HISTORY Not available. REVIEW OF SYSTEMS Can not assess. PHYSICAL EXAMINATION GENERAL: Elderly female, intubated and sedated. VITAL SIGNS: Blood pressure 120/57, heart rate 82, respirations 24. HEENT: Examination pupils reactive to light. She is orally intubated. NECK: Supple. JVP not raised. CHEST: Air entry equal bilaterally. She has expiratory rhonchi. CARDIOVASCULAR: S1-S2 normal. ABDOMEN: Benign. EXTREMITIES: No edema. IMPRESSION 1. Hypercapnic respiratory failure. 2. COPD exacerbation. 3. Mild hypotension after starting her on sedation. PLAN I discussed with Dr. Whitmore, adjust ventilatory setting. Repeat her blood gas. Continue IV Solu-Medrol. Continue antibiotic. She is getting IV fluid. If she does not improve her blood pressure she will need levophed. Wean from the ventilator as tolerated. Monitor electrolytes. Further treatment will depend on the course in the hospital. Thank you Dr. Auguste for this patient. MD GUZMAN Dorman/FRANDY /5:56 PM /6:02 PM MTDD
[2017-04-14] MEDS: FAMOTIDINE 20 MG/2 ML VIAL IV PUSH SCH (18:18)
[2017-04-14 18:42] LABS: BLOOD GAS BASE EXCESS 15.6 mmol/L (-2-2); BLOOD GAS CARBOXYHEMOGLOBIN 1.5 % (0-4); BLOOD GAS HCO3 40 mmol/L (22-26); BLOOD GAS METHEMOGLOBIN 1.3 % (0-2); BLOOD GAS O2 HGB SATURATION 94 % (90-100); BLOOD GAS OXYGEN CONTENT 16.5 Vol % (12.0-20.0); BLOOD GAS PCO2 53 mmHg (38-42); BLOOD GAS PO2 72 mmHg (61-120); BLOOD GAS TOTAL HGB 12.5 G/DL (12.0-16.0); CRITICAL VALUE YES; TEMP CORR TO 98.6
[2017-04-14 18:43] LABS: DRAW SITE RT RADIAL; FIO2 28 %; NUMBER OF ARTERIAL PUNCTURES 1; OXYGEN DEVICE VENTILATOR; STAT NO; ULNAR PULSE PRESENT; VENT SETTINGS A/C 550/18/5PEEP
--- NOTE | 2017-04-14 18:55 | PD ---
Physical Exam Narrative Patient was seen and examined with my physical therapist assistant. Data Data Last Documented VS Vital Signs Date Time Temp Pulse Resp B/P (MAP) Pulse Ox O2 Delivery O2 Flow Rate FiO2 04/14/17 14:00 76 24 135/76 (95) 100 BiPAP 60 04/14/17 12:00 2.00 04/14/17 10:53 96.8 Orders Orders Complete Blood Count With Diff (04/14/17 11:24) Comprehensive Metabolic Panel (04/14/17 11:24) B-Type Natriuretic Peptide (04/14/17 11:24) Magnesium (Mg) (04/14/17 11:24) Urinalysis - C+S If Indicated (04/14/17 11:24) Iv Access Insert/Monitor (04/14/17 11:24) Electrocardiogram (04/14/17 11:24) Ecg Monitoring (04/14/17 11:24) Oximetry (04/14/17 11:24) Oxygen Administration (04/14/17 11:24) Chest, Single Ap (04/14/17 11:24) Sodium Chloride 0.9% Flush (Ns Flush) (04/14/17 11:30) Albuterol-Ipratropium Neb (Duoneb Neb) (04/14/17 11:30) Cath For Specimen (04/14/17 11:24) Ct Brain W/O Iv Contrast(Rout) (04/14/17 ) Ct Cerv Spine W/O Contrast (04/14/17 ) Lactic Acid (04/14/17 11:25) Arterial Blood Gas (Abg) (04/14/17 ) Blood Culture (04/14/17 11:25) Budesonide Neb (Pulmicort Respule Neb) (04/14/17 12:00) Methylprednisolone So Succ Inj (Solumedr (04/14/17 12:00) Sodium Chloride 0.9% Flush (Ns Flush) (04/14/17 12:30) Resp Bipap / Cpap Non Invas Vt (04/14/17 12:26) Arterial Blood Gas (Abg) (04/14/17 13:15) Sodium Chlor 0.9% 1000 Ml Inj (Ns 1000 M (04/14/17 12:45) Sodium Chlorid 0.9% 500 Ml Inj (Ns 500 M (04/14/17 12:45) Sodium Chlor 0.9% 1000 Ml Inj (Ns 1000 M (04/14/17 12:45) Magnesium Sulfate 1 Gm Premix (Magnesium (04/14/17 12:45) Dext 5%-Nacl 0.45% 1000 Ml Inj (D5w-1/2 (04/14/17 13:45) Admit Order (Ed Use Only) (04/14/17 14:03) Labs Laboratory Tests Test 04/14/17 11:45 04/14/17 11:55 04/14/17 12:10 White Blood Count 7.1 TH/MM3 Red Blood Count 4.50 MIL/MM3 Hemoglobin 14.1 GM/DL Hematocrit 40.7 % Mean Corpuscular Volume 90.5 FL Mean Corpuscular Hemoglobin 31.2 PG Mean Corpuscular Hemoglobin Concent 34.5 % Red Cell Distribution Width 15.1 % Platelet Count 222 TH/MM3 Mean Platelet Volume 7.6 FL Neutrophils (%) (Auto) 86.2 % Lymphocytes (%) (Auto) 3.9 % Monocytes (%) (Auto) 7.8 % Eosinophils (%) (Auto) 1.9 % Basophils (%) (Auto) 0.2 % Neutrophils # (Auto) 6.1 TH/MM3 Lymphocytes # (Auto) 0.3 TH/MM3 Monocytes # (Auto) 0.6 TH/MM3 Eosinophils # (Auto) 0.1 TH/MM3 Basophils # (Auto) 0.0 TH/MM3 CBC Comment DIFF FINAL Differential Comment Blood Urea Nitrogen 14 MG/DL Creatinine 0.72 MG/DL Random Glucose 105 MG/DL Total Protein 6.5 GM/DL Albumin 3.0 GM/DL Calcium Level 9.1 MG/DL Magnesium Level 1.4 MG/DL Alkaline Phosphatase 60 U/L Aspartate Amino Transf (AST/SGOT) 36 U/L Alanine Aminotransferase (ALT/SGPT) 37 U/L Total Bilirubin 0.6 MG/DL Sodium Level 117 MEQ/L Potassium Level 4.7 MEQ/L Chloride Level 70 MEQ/L Carbon Dioxide Level 44.5 MEQ/L Anion Gap 3 MEQ/L Estimat Glomerular Filtration Rate 80 ML/MIN Lactic Acid Level 0.6 mmol/L B-Type Natriuretic Peptide 76 PG/ML Urine Color LIGHT-YELLOW Urine Turbidity HAZY Urine pH 7.0 Urine Specific [place] 1.008 Urine Protein NEG mg/dL Urine Glucose (UA) NEG mg/dL Urine Ketones NEG mg/dL Urine Occult Blood NEG Urine Nitrite NEG Urine Bilirubin NEG Urine Urobilinogen LESS THAN 2.0 MG/DL Urine Leukocyte Esterase NEG Urine RBC 1 /hpf Urine WBC 2 /hpf Urine Amorphous Sediment FEW Urine Bacteria RARE /hpf Urine Hyaline Casts 3 /lpf Microscopic Urinalysis Comment CULT NOT INDICATED Blood Gas Puncture Site RT RADIAL Blood Gas Patient Temperature 37.0 Blood Gas HCO3 48 mmol/L Blood Gas Base Excess 20.0 mmol/L Blood Gas Oxygen Saturation 96 % Arterial Blood pH 7.28 Arterial Blood Partial Pressure CO2 105 mmHg Arterial Blood Partial Pressure O2 119 mmHG Arterial Blood Oxygen Content 17.5 Vol % Arterial Blood Carboxyhemoglobin 1.6 % Arterial Blood Methemoglobin 0.8 % Blood Gas Hemoglobin 12.8 G/DL Oxygen Delivery Device NASAL CANNULA Blood Gas Liter Flow 2 L/M MDM Supervised Visit with TOMAS: Yes Critical Care Narrative Aggregate critical care time was 30 minutes. Time to perform other separately billable procedures was not included in the critical care time. My time did not include minutes spent treating any other patients simultaneously or on activities that did not directly contribute to the patient's treatment. The services I provided to this patient were to treat and/or prevent clinically significant deterioration that could result in: I provided critical care services requiring my management, as noted below: Chart data review, documentation time, medication orders and management, vital sign assessments/reviewing monitor data, ordering and reviewing lab tests, ordering and interpreting/reviewing x-rays and diagnostic studies, care of the patient and discussion of the patient with the admitting physicians. Diagnosis Primary Impression: Hyponatremia Additional Impressions: Acute and chronic respiratory failure COPD (chronic obstructive pulmonary disease) Qualified Codes: J44.1 - Chronic obstructive pulmonary disease with (acute) exacerbation Weakness Hypomagnesemia Condition: Stable Farhad Rojas MD Apr 14, 2017 18:55
[2017-04-14] MEDS: ASPIRIN 81 MG CHEW TAB CHEW SCH (21:00)
[2017-04-14] MEDS ORDERED: MIDAZOLAM HCL 5 MG/ML VIAL (1 ML) ONE (21:23)
[2017-04-14] MEDS: NOREPINEPHRINE 4 MG/D5W 250 ML IV PRN (21:45)
--- NOTE | 2017-04-14 22:32 | RADRPT ---
EXAM DATE/TIME: 04/14/2017 22:15 [place] COMPARISON: CHEST SINGLE AP, April 14, 2017, 16:09. INDICATIONS : Central line placement. MEDICAL HISTORY : Hypertension. SURGICAL HISTORY : Appendectomy. ENCOUNTER: Initial ACUITY: 1 day PAIN SCORE: Non-responsive. LOCATION: Bilateral chest FINDINGS: Patient is rotated towards the right. Right central line tip projects over the distal superior vena cava. No evidence of pneumothorax. ET tube tip is 2 cm above the chandu. No focal infiltrates seen . The heart is normal size. Both hemidiaphragms are well delineated. CONCLUSION: Central line in good position. No evidence of pneumothorax. Ryan Bearden MD on April 14, 2017 at 22:29 Board Certified Radiologist. This report was verified electronically.
[2017-04-14] MEDS: SODIUM CHLOR 0.45% 1000 ML INJ 1,000 ML IV SCH (23:43)
[2017-04-15] VITALS (18 sets, daily range): BP systolic 78–132; BP diastolic 41–65; PULSE 94–124; RESP 10–19; TEMP 97.8–98.9; O2SAT 92–98
[2017-04-15] MEDS: RESP: ALBUTEROL 2.5 MG/IPRATROPIUM 0.5 MG NEB (SCH) NEB ×7 (00:03→23:05)
[2017-04-15] MEDS: SODIUM CHLOR 0.45% 1000 ML INJ 1,000 ML IV SCH (00:33)
--- NOTE | 2017-04-15 00:53 | PD.PROCEDR ---
Procedure Note Procedure Centerline placement A time-out was completed verifying correct patient, procedure, site, positioning , and special equipment if applicable. The patient was placed in a dependent position appropriate for central line placement based on the vein to be cannulated. The patients right neck was prepped and draped in sterile fashion. 1% Lidocaine was used to anesthetize the surrounding skin area. A triple lumen 9 -[place] Cordis catheter was introduced into the the internal jugular vein using the Seldinger technique and under ultrasound guidance. The catheter was threaded smoothly over the guide wire and appropriate blood return was obtained. Each lumen of the catheter was evacuated of air and flushed with sterile saline. The catheter was then sutured in place to the skin and a sterile dressing applied. Perfusion to the extremity distal to the point of catheter insertion was checked and found to be adequate. Estimated Blood Loss: 1ml The patient tolerated the procedure well and there were no complications. Owen Dewitt MD Apr 15, 2017 12:53 am
[2017-04-15] MEDS: methylPREDNISolone SOD SUCC 40 MG/1 ML VIAL IV PUSH SCH ×3 (02:27→16:47)
[2017-04-15] MEDS: SODIUM CHLOR 0.9% 1000 ML INJ 1,000 ML IV SCH ×2 (02:28→06:07)
[2017-04-15] MEDS: NOREPINEPHRINE 4 MG/D5W 250 ML IV PRN ×2 (02:28→16:46)
[2017-04-15] MEDS ORDERED: SODIUM CHLOR 0.9% 1000 ML INJ 1,000 ML IV ONE (03:45)
[2017-04-15] MEDS: fentaNYL DRIP 250 ML IV PRN (04:00)
[2017-04-15] MEDS: FAMOTIDINE 20 MG/2 ML VIAL IV PUSH SCH ×2 (04:52→16:48)
[2017-04-15] MEDS: PROPOFOL 1000 MG/100 ML INJ 100 ML IV PRN ×2 (04:53→10:07)
[2017-04-15] MEDS: INSULIN NovoLIN REGULAR SUPPLEMENTAL SCALE SQ SCH ×5 (05:00→21:00)
[2017-04-15 05:57] LABS: AUTOMATED NEUTROPHIL # 9.6 TH/MM3 (1.8-7.7); HEMATOCRIT 33.5 % (35.0-46.0); HEMO FLAGS DIFF FINAL; LYMPH % 2.2 % (9.0-44.0); LYMPHOCYTE # 0.2 TH/MM3 (1.0-4.8); MEAN CELL VOLUME 90.8 FL (80.0-100.0); MEAN CORPUSCULAR HEMOGLOBIN 31.6 PG (27.0-34.0); MEAN CORPUSCULAR HGB CONC 34.8 % (32.0-36.0); MONO % 5.8 % (0.0-8.0); PLATELET COUNT 253 TH/MM3 (150-450); RED BLOOD COUNT 3.69 MIL/MM3 (4.00-5.30); RED CELL DISTRIBUTION WIDTH 15.3 % (11.6-17.2); WHITE BLOOD COUNT 10.4 TH/MM3 (4.0-11.0)
[2017-04-15 06:27] LABS: BICARBONATE 30.7 MEQ/L (21.0-32.0); POTASSIUM 3.6 MEQ/L (3.5-5.1)
[2017-04-15] MEDS ORDERED: [UNRECOGNIZED DRUG - OTHER] INH SCH (09:00)
[2017-04-15] MEDS ORDERED: TIOTROPIUM OLODATEROL INH SCH (09:00)
[2017-04-15] MEDS: PRAVASTATIN SOD 40 MG TAB PO SCH (09:00)
[2017-04-15] MEDS ORDERED: LOSARTAN 50 MG TAB PO SCH (09:00)
--- NOTE | 2017-04-15 10:31 | HHI.CCPN ---
Subjective Remarks/Hospital Course The patient is a 72-year-old female with past medical history of COPD oxygen- dependent, hypertension and dyslipidemia who presented to [facility] ED with generalized weakness, lethargy and shortness of breath. Her initial ABG on two liters oxygen showed acute hypercapnic respiratory acidosis with a pH of 7.28, CO2 105, pAO2 119, bicarb 48 and saturation of 96%. She was placed on BiPap at 12/5 with 60% FIO2 and a repeat ABG showed worsening respiratory acidosis with a pH of 7.21, CO2 120. She was subsequently intubated with etomidate and succinylcholine and placed on full mechanical ventilation. Also, she was started on a Diprivan infusion for sedation. Her laboratory data was significant for hyponatremia with a sodium level of 117. In the ED, she was given bronchodilator treatments Solu-Medrol 125 mg IV push, magnesium replacement and 500 bolus of normal saline. When seen, the patient is sedated and intubated. Her last admission was in February and, at that time, she had a sodium level of 139. The patient was initially admitted to Dr. Auguste from [facility], however, after the patient was intubated in the ED critical care medicine was consulted for critical care management. 04/15 Patient remains sedated and intubated. She was placed on Levophed 10 mics Patient was given 3L boluses overnight ( 2L 1/2NS, 1L NS) Afebrile. Objective Vital Signs Date Time Temp Pulse Resp B/P (MAP) Pulse Ox O2 Delivery O2 Flow Rate FiO2 04/15/17 06:00 124 04/15/17 05:40 94/53 04/15/17 04:00 28 04/15/17 04:00 98.5 19 95 04/14/17 15:00 BiPAP 04/14/17 12:00 2.00 Intake and Output 04/15/17 04/15/17 04/16/17 08:00 16:00 00:00 Intake Total 4057 ml Output Total 450 ml Balance 3607 ml Result Diagram: 04/15/17 0508 04/15/17 0508 Other Results Laboratory Tests Test 04/14/17 11:45 04/14/17 11:55 04/14/17 12:10 04/14/17 15:35 White Blood Count 7.1 TH/MM3 Red Blood Count 4.50 MIL/MM3 Hemoglobin 14.1 GM/DL Hematocrit 40.7 % Mean Corpuscular Volume 90.5 FL Mean Corpuscular Hemoglobin 31.2 PG Mean Corpuscular Hemoglobin Concent 34.5 % Red Cell Distribution Width 15.1 % Platelet Count 222 TH/MM3 Mean Platelet Volume 7.6 FL Neutrophils (%) (Auto) 86.2 % Lymphocytes (%) (Auto) 3.9 % Monocytes (%) (Auto) 7.8 % Eosinophils (%) (Auto) 1.9 % Basophils (%) (Auto) 0.2 % Neutrophils # (Auto) 6.1 TH/MM3 Lymphocytes # (Auto) 0.3 TH/MM3 Monocytes # (Auto) 0.6 TH/MM3 Eosinophils # (Auto) 0.1 TH/MM3 Basophils # (Auto) 0.0 TH/MM3 CBC Comment DIFF FINAL Differential Comment Blood Urea Nitrogen 14 MG/DL Creatinine 0.72 MG/DL Random Glucose 105 MG/DL Total Protein 6.5 GM/DL Albumin 3.0 GM/DL Calcium Level 9.1 MG/DL Magnesium Level 1.4 MG/DL Alkaline Phosphatase 60 U/L Aspartate Amino Transf (AST/SGOT) 36 U/L Alanine Aminotransferase (ALT/SGPT) 37 U/L Total Bilirubin 0.6 MG/DL Sodium Level 117 MEQ/L Potassium Level 4.7 MEQ/L Chloride Level 70 MEQ/L Carbon Dioxide Level 44.5 MEQ/L Anion Gap 3 MEQ/L Estimat Glomerular Filtration Rate 80 ML/MIN Lactic Acid Level 0.6 mmol/L B-Type Natriuretic Peptide 76 PG/ML Urine Color LIGHT-YELLOW Urine Turbidity HAZY Urine pH 7.0 Urine Specific [place] 1.008 Urine Protein NEG mg/dL Urine Glucose (UA) NEG mg/dL Urine Ketones NEG mg/dL Urine Occult Blood NEG Urine Nitrite NEG Urine Bilirubin NEG Urine Urobilinogen LESS THAN 2.0 MG/DL Urine Leukocyte Esterase NEG Urine RBC 1 /hpf Urine WBC 2 /hpf Urine Amorphous Sediment FEW Urine Bacteria RARE /hpf Urine Hyaline Casts 3 /lpf Microscopic Urinalysis Comment CULT NOT INDICATED Urine Osmolality 355 MOSM/KG Urine Random Sodium 58 MEQ/L Blood Gas Puncture Site RT RADIAL RT RADIAL Blood Gas Patient Temperature 37.0 37.0 Blood Gas HCO3 48 mmol/L 46 mmol/L Blood Gas Base Excess 20.0 mmol/L 17.9 mmol/L Blood Gas Oxygen Saturation 96 % 98 % Arterial Blood pH 7.28 7.21 Arterial Blood Partial Pressure CO2 105 mmHg 120 mmHg Arterial Blood Partial Pressure O2 119 mmHG 249 mmHG Arterial Blood Oxygen Content 17.5 Vol % 18.3 Vol % Arterial Blood Carboxyhemoglobin 1.6 % 1.2 % Arterial Blood Methemoglobin 0.8 % 0.9 % Blood Gas Hemoglobin 12.8 G/DL 13.0 G/DL Oxygen Delivery Device NASAL CANNULA BiPAP Blood Gas Liter Flow 2 L/M Blood Gas Ventilator Setting 12/+5/60% Blood Gas Inspired Oxygen 60 % Test 04/14/17 17:00 04/14/17 17:25 04/14/17 18:35 04/14/17 22:15 Nasal Screen MRSA (PCR) MRSA DETECTED Sodium Level 130 MEQ/L 120 MEQ/L Serum Osmolality 273 MOSM/KG Thyroid Stimulating Hormone 3rd Gen 0.272 uIU/ML Blood Gas Puncture Site RT RADIAL Blood Gas Patient Temperature 98.6 Blood Gas HCO3 40 mmol/L Blood Gas Base Excess 15.6 mmol/L Blood Gas Oxygen Saturation 94 % Arterial Blood pH 7.49 Arterial Blood Partial Pressure CO2 53 mmHg Arterial Blood Partial Pressure O2 72 mmHg Arterial Blood Oxygen Content 16.5 Vol % Arterial Blood Carboxyhemoglobin 1.5 % Arterial Blood Methemoglobin 1.3 % Blood Gas Hemoglobin 12.5 G/DL Oxygen Delivery Device VENTILATOR Blood Gas Ventilator Setting A/C 550/18/5PEEP Blood Gas Inspired Oxygen 28 % Phosphorus Level 0.9 MG/DL Test 04/15/17 01:40 04/15/17 05:08 Sodium Level 117 MEQ/L 118 MEQ/L White Blood Count 10.4 TH/MM3 Red Blood Count 3.69 MIL/MM3 Hemoglobin 11.7 GM/DL Hematocrit 33.5 % Mean Corpuscular Volume 90.8 FL Mean Corpuscular Hemoglobin 31.6 PG Mean Corpuscular Hemoglobin Concent 34.8 % Red Cell Distribution Width 15.3 % Platelet Count 253 TH/MM3 Mean Platelet Volume 8.2 FL Neutrophils (%) (Auto) 92.0 % Lymphocytes (%) (Auto) 2.2 % Monocytes (%) (Auto) 5.8 % Eosinophils (%) (Auto) 0.0 % Basophils (%) (Auto) 0.0 % Neutrophils # (Auto) 9.6 TH/MM3 Lymphocytes # (Auto) 0.2 TH/MM3 Monocytes # (Auto) 0.6 TH/MM3 Eosinophils # (Auto) 0.0 TH/MM3 Basophils # (Auto) 0.0 TH/MM3 CBC Comment DIFF FINAL Differential Comment Blood Urea Nitrogen 17 MG/DL Creatinine 0.93 MG/DL Random Glucose 159 MG/DL Calcium Level 7.6 MG/DL Phosphorus Level 2.2 MG/DL Magnesium Level 1.0 MG/DL Potassium Level 3.6 MEQ/L Chloride Level 77 MEQ/L Carbon Dioxide Level 30.7 MEQ/L Anion Gap 10 MEQ/L Estimat Glomerular Filtration Rate 59 ML/MIN Imaging Last Impressions Chest X-Ray 04/14/17 1551 Signed Impressions: Service Date/Time: Friday, April 14, 2017 16:09 - CONCLUSION: ET tube tip 2 cm above the chandu. Ryan Bearden MD Head CT 04/14/17 0000 Signed Impressions: Service Date/Time: Friday, April 14, 2017 13:18 - CONCLUSION: Normal examination for a patient of this age. No significant change has occurred. Tim Mcarthur MD Cervical Spine CT 04/14/17 0000 Signed Impressions: Service Date/Time: Friday, April 14, 2017 13:18 - CONCLUSION: 1. No acute fracture. Moderate degenerative disc disease in the lower cervical spine with mild AP canal stenosis as above. Tim Mcarthur MD Objective Remarks GENERAL: Patient is 72 yo intubated and sedated. SKIN: Warm and dry. HEAD: Normocephalic. EYES: No scleral icterus. No injection or drainage. NECK: Supple, trachea midline. No JVD or lymphadenopathy. CARDIOVASCULAR: Regular rate and rhythm without murmurs, gallops, or rubs. RESPIRATORY: Breath sounds equal bilaterally. Diminished. GASTROINTESTINAL: Abdomen soft, non-tender, nondistended. MUSCULOSKELETAL: No cyanosis, or edema. Neuro: Sedated A/P Assessment and Plan 1. VDRF 2. COPD exacerbation oxygen-dependent 3. Hyponatremia 4. Hyperlipidemia Plan Neuro: On Diprivan/Fentanyl infusion for sedation. Daily sedation vacation CT brain in the ED negative for acute intracranial process. Pulm: Continue with vent support and maintain sats above 92%. Bronchodilators, Solu-Medrol 40mg IV q. Q8 Start SBT daily and possible extubation if peggy CV: Wean off Levophed ,Monitor HR and BP and maintain MAP>65 mmHg. Echo from February showed an EF of 55-60%. Continue with aspirin 81 mg daily, Pravachol 40 mg daily. : Monitor renal function Is and Os and electrolyte replacement per protocol. On NS@75ml/hr, sodium level q. 4-hour. Renal eval. Avoid over correction of sodium and maximum 9 mEq in 24 hours. ID: Continue with empiric abx( Levaquin) for COPD exace and monitor for signs of infections( fever and WBC). GI: On Pepcid 10 mg IV q. 12 for GI prophylaxis. Start tube feeds today if remains intubated. Endo: SSI with Accu-Chek q. 4-hour for glycemic control Heme: Monitor CBC. GI prophylaxis with Pepcid and DVT prophylaxis with SCDs/ Lovenox 40 mg subcu daily. Level 3 Sander Whitmore MD Apr 15, 2017 10:31
[2017-04-15] MEDS ORDERED: TOLVAPTAN 15 MG TAB PO ONE (12:30)
--- NOTE | 2017-04-15 12:44 | PD.CONS ---
HPI Service Nephrology Consult Requested By Dr. Whitmore Reason for Consult Hyponatremia Primary Care Physician Laura Toure MD History of Present Illness Patient is a 72-year-old white female with history of COPD previous history of smoking admitted with increasing shortness of breath and she is intubated her sodium has declined and currently at 118, she has been getting IV fluid D5 half- normal saline and normal saline in the past with no improvement in the sodium urine sodium is 58/urine osmolality 355, urine output is about 700, patient is awake on Bipap Review of Systems ROS Limitations: Clinical Condition Past Family Social History Allergies: Coded Allergies: prednisone (Verified Allergy, Mild, Rash, 04/11/17) Past Medical History COPD hypertension dyslipidemia Past Surgical History appendectomy hernia repair Reported Medications Reported Meds & Active Scripts Active Nystatin Liq 100,000 unit/ml Susp 5 Ml SWISH-SWAL QID Use for 7 days. Potassium Chloride ER (Potassium Chloride) 20 Meq Tab 20 Meq PO DAILY Metoprolol Tartrate 50 Mg Tab 50 Mg PO BID Losartan (Losartan Potassium) 100 Mg Tab 100 Mg PO DAILY Medrol (Methylprednisolone) 4 Mg Tab 4 Mg PO DAILY 4 tablets bid x 4 days then 3 tablets bid x 4 days 2 tablets bid x 3 days 1 tablet bid x 3 days then 1 tablet daily x 5 days Oxygen (O2) Device Liter JASEN.CANULA CONTINUOUS Oxygen Concentrator Portable Gaseous 2 L/min via Nasal Canula Continuous For 99 months Albuterol Neb (Albuterol Sulfate) 2.5 Mg/3 Ml Neb 2.5 Mg INH Q2HR NEB PRN MDD 4 30 Days As directed Reported Lasix (Furosemide) 20 Mg Tab 20 Mg PO BID Xanax (Alprazolam) 0.25 Mg Tab 0.25 Mg PO TID PRN Stiolto Respimat Inh (Tiotropium-Olodaterol Inh) 2.5-2.5 Mcg/Act Aero 2 Puff INH DAILY Green Tea (Green Tea [place] Extract) 250 Mg Capsule 500 BID Vitamin D-1000 (Cholecalciferol) 1,000 Unit Tab 2,000 Units PO DAILY [place]-3 Fish Oil/Vitamin (Fish Oil-Cholecalciferol) 1,000-1,000 Mg Cap 1 Cap PO DAILY Calcium (Calcium Carbonate) 600 Mg Calcium (1500 Mg) Tab BID Aspirin 81 Mg Chew 81 Mg CHEW HS Simvastatin 20 Mg Tab 20 Mg PO DAILY Active Ordered Medications Current Medications Medications (Trade) Dose Ordered Sig/Mik Route Start Time Stop Time Status Last Admin (NS Flush) 2 ml UNSCH PRN IVF 04/14/17 11:30 04/14/17 12:07 (NS Flush) 2 ml UNSCH PRN IVF 04/14/17 12:30 (SoluMEDROL INJ) 40 mg Q8H IV PUSH 04/14/17 18:00 04/15/17 10:05 (Duoneb Neb) 1 ampule Q4HR NEB NEB 04/14/17 16:00 04/15/17 12:21 (Albuterol Neb) 1.25 mg Q2HR NEB PRN NEB 04/14/17 14:30 (Lovenox Inj) 40 mg Q24H SQ 04/14/17 15:00 04/14/17 15:38 (Xanax) 0.25 mg TID PRN PO 04/14/17 14:30 (Aspirin Chew) 81 mg HS CHEW 04/14/17 21:00 (Pravachol) 40 mg DAILY PO 04/15/17 09:00 Patient Own Medication PT OWN MED: STIO... DAILY INH 04/15/17 09:00 Future Hold Levofloxacin/ Dextrose 50 ml @ 50 mls/hr Q24H IV 04/14/17 16:00 04/14/17 17:30 Propofol 100 ml @ 2.25 mls/hr TITRATE PRN IV 04/14/17 16:30 04/15/17 10:07 Sodium Chloride 1,000 ml @ 75 mls/hr [id number] IV 04/14/17 17:00 04/15/17 06:07 Fentanyl Citrate 250 ml @ 5 mls/hr TITRATE PRN IV 04/14/17 17:00 04/15/17 04:00 (D50w (Vial) Inj) 50 ml UNSCH PRN IV PUSH 04/14/17 17:00 (Glucagon Inj) 1 mg UNSCH PRN OTHER 04/14/17 17:00 (NovoLIN R SUPPLEMENTAL SCALE) 1 Q4H SQ 04/14/17 17:00 04/15/17 09:00 Potassium Chloride 100 ml @ 50 mls/hr Q2H PRN IV 04/14/17 17:15 Potassium Chloride 100 ml @ 50 mls/hr Q2H PRN IV 04/14/17 17:15 (K-Lyte Cl Eff) 50 meq UNSCH PRN PO 04/14/17 17:15 Potassium Chloride 100 ml @ 25 mls/hr UNSCH PRN IV 04/14/17 17:15 Potassium Chloride 100 ml @ 50 mls/hr Q2H PRN IV 04/14/17 17:15 Magnesium Sulfate 4 gm/Sodium Chloride 100 ml @ 50 mls/hr UNSCH PRN IV 04/14/17 17:15 04/15/17 10:07 (Mag-Ox) 800 mg UNSCH PRN PO 04/14/17 17:15 Magnesium Sulfate 2 gm/Sodium Chloride 100 ml @ 50 mls/hr UNSCH PRN IV 04/14/17 17:15 (K-Phos) 2,000 mg Q4H PRN PO 04/14/17 17:15 Sodium Phosphate 30 mmol/Sodium Chloride 250 ml @ 42 mls/hr UNSCH PRN IV 04/14/17 17:15 04/15/17 02:34 (K-Phos) 2,000 mg UNSCH PRN PO/TUBE 04/14/17 17:15 Potassium Phosphate 30 mmol/ Sodium Chloride 260 ml @ 42 mls/hr UNSCH PRN IV 04/14/17 17:15 (Pepcid Inj) 10 mg Q12H IV PUSH 04/14/17 18:00 04/15/17 04:52 Norepinephrine Bitartrate 250 ml @ 7.5 mls/hr TITRATE PRN IV 04/14/17 23:30 04/15/17 02:28 Family History Noncontributory Social History History of smoking in the past Physical Exam Vital Signs Vital Signs Date Time Temp Pulse Resp B/P (MAP) Pulse Ox O2 Delivery O2 Flow Rate FiO2 04/15/17 12:21 92 35 04/15/17 10:00 109 04/15/17 08:00 98.4 115 18 98/57 (71) 97 04/15/17 08:00 115 04/15/17 08:00 28 04/15/17 06:00 124 04/15/17 05:40 128 94/53 04/15/17 04:00 111 04/15/17 04:00 28 04/15/17 04:00 98.5 111 19 132/65 (87) 95 04/15/17 03:38 97 28 04/15/17 02:28 97 88/55 04/15/17 02:00 102 04/15/17 00:33 101 122/65 04/15/17 00:02 98 28 04/15/17 00:00 100 04/15/17 00:00 98.9 100 18 115/63 (80) 97 04/15/17 00:00 28 04/14/17 23:43 107 122/72 04/14/17 22:00 106 04/14/17 21:45 118 74/47 04/14/17 20:00 97.0 104 18 87/50 (62) 100 04/14/17 20:00 28 04/14/17 20:00 99 28 04/14/17 20:00 104 04/14/17 18:00 97.4 111 19 102/61 (75) 100 04/14/17 16:30 97.4 98 24 157/72 (100) 100 04/14/17 16:30 04/14/17 15:00 82 24 120/57 (78) 100 BiPAP 60 04/14/17 14:00 76 24 135/76 (95) 100 BiPAP 60 04/14/17 12:50 97 40 04/14/17 12:39 100 BiPAP 60 04/14/17 12:39 Nasal Cannula Physical Exam GENERAL: Well-nourished, well-developed patient. SKIN: Warm and dry. HEAD: Normocephalic. EYES: No scleral icterus. No injection or drainage. NECK: Supple, trachea midline. No JVD or lymphadenopathy. CARDIOVASCULAR: Tachycardia RESPIRATORY: Breath sounds diminished at bases. GASTROINTESTINAL: Abdomen soft, non-tender, nondistended. EXTREMITIES: No cyanosis, 1+ josé manuel edema. NEUROLOGICAL: Awake, on ventilator Laboratory Laboratory Tests Test 04/14/17 15:35 04/14/17 17:00 04/14/17 17:25 04/14/17 18:35 Blood Gas Puncture Site RT RADIAL RT RADIAL Blood Gas Patient Temperature 37.0 98.6 Blood Gas HCO3 46 40 Blood Gas Base Excess 17.9 15.6 Blood Gas Oxygen Saturation 98 94 Arterial Blood pH 7.21 7.49 Arterial Blood Partial Pressure CO2 120 53 Arterial Blood Partial Pressure O2 249 72 Arterial Blood Oxygen Content 18.3 16.5 Arterial Blood Carboxyhemoglobin 1.2 1.5 Arterial Blood Methemoglobin 0.9 1.3 Blood Gas Hemoglobin 13.0 12.5 Oxygen Delivery Device BiPAP VENTILATOR Blood Gas Ventilator Setting 12/+5/60% A/C 550/18/5PEEP Blood Gas Inspired Oxygen 60 28 Nasal Screen MRSA (PCR) MRSA DETECTED Sodium Level 130 Serum Osmolality 273 Thyroid Stimulating Hormone 3rd Gen 0.272 Test 04/14/17 22:15 04/15/17 01:40 04/15/17 05:08 Sodium Level 120 117 118 Phosphorus Level 0.9 2.2 White Blood Count 10.4 Red Blood Count 3.69 Hemoglobin 11.7 Hematocrit 33.5 Mean Corpuscular Volume 90.8 Mean Corpuscular Hemoglobin 31.6 Mean Corpuscular Hemoglobin Concent 34.8 Red Cell Distribution Width 15.3 Platelet Count 253 Mean Platelet Volume 8.2 Neutrophils (%) (Auto) 92.0 Lymphocytes (%) (Auto) 2.2 Monocytes (%) (Auto) 5.8 Eosinophils (%) (Auto) 0.0 Basophils (%) (Auto) 0.0 Neutrophils # (Auto) 9.6 Lymphocytes # (Auto) 0.2 Monocytes # (Auto) 0.6 Eosinophils # (Auto) 0.0 Basophils # (Auto) 0.0 CBC Comment DIFF FINAL Differential Comment Blood Urea Nitrogen 17 Creatinine 0.93 Random Glucose 159 Calcium Level 7.6 Magnesium Level 1.0 Potassium Level 3.6 Chloride Level 77 Carbon Dioxide Level 30.7 Anion Gap 10 Estimat Glomerular Filtration Rate 59 Date/Time Source Procedure Growth Status 04/14/17 11:50 Blood Peripheral Aerobic Blood Culture - Preliminary NO GROWTH IN 1 DAY Resulted 04/14/17 11:50 Blood Peripheral Anaerobic Blood Culture - Preliminary NO GROWTH IN 1 DAY Resulted Result Diagram: 04/15/17 0508 04/15/17 0508 Imaging Last Impressions Chest X-Ray 04/14/17 1551 Signed Impressions: Service Date/Time: Friday, April 14, 2017 16:09 - CONCLUSION: ET tube tip 2 cm above the chandu. Ryan Beadren MD Head CT 04/14/17 0000 Signed Impressions: Service Date/Time: Friday, April 14, 2017 13:18 - CONCLUSION: Normal examination for a patient of this age. No significant change has occurred. Tim Mcarthur MD Cervical Spine CT 04/14/17 0000 Signed Impressions: Service Date/Time: Friday, April 14, 2017 13:18 - CONCLUSION: 1. No acute fracture. Moderate degenerative disc disease in the lower cervical spine with mild AP canal stenosis as above. Tim Mcarthur MD Assessment and Plan Problem List: (1) Hyponatremia ICD Codes: E87.1 - Hypo-osmolality and hyponatremia Status: Acute Plan: This may be likely due to underlying 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 I will give tolvaptan 15 mg daily Follow BMP Cut back to normal saline at 20 cc an hour Monitor urine output May use loop diuretics periodically (2) COPD (chronic obstructive pulmonary disease) ICD Codes: J44.9 - Chronic obstructive pulmonary disease, unspecified Plan: Patient is dependent on home oxygen (3) HTN (hypertension) ICD Codes: I10 - Essential (primary) hypertension Plan: Continue to monitor (4) Acute and chronic respiratory failure ICD Codes: J96.20 - Acute and chronic respiratory failure, unspecified whether with hypoxia or hypercapnia Plan: On vent Problem Qualifiers (1) COPD (chronic obstructive pulmonary disease): Qualified Codes: J44.1 - Chronic obstructive pulmonary disease with (acute) exacerbation Nasima Tran MD Apr 15, 2017 12:44
--- NOTE | 2017-04-15 13:05 | RADRPT ---
EXAM DATE/TIME: 04/15/2017 12:38 [facility] COMPARISON: CHEST SINGLE AP, April 14, 2017, 22:15. INDICATIONS : Evaluate OG tube placement MEDICAL HISTORY : Hypertension. SURGICAL HISTORY : Appendectomy. ENCOUNTER: Subsequent ACUITY: 2 days PAIN SCORE: Non-responsive. LOCATION: chest FINDINGS: Interval placement gastric tube with side-port project within the stomach. ET tube and right central line are stable. The lungs are symmetrically aerated and clear. The heart is normal in size. CONCLUSION: Gastric tube is positioned within the stomach. Ryan Bearden MD on April 15, 2017 at 13:02 Board Certified Radiologist. This report was verified electronically.
[2017-04-15] MEDS: ALPRAZolam 0.25 MG TAB PO PRN (14:00)
[2017-04-15 14:06] LABS: BLOOD GAS BASE EXCESS 9.2 mmol/L (-2-2); BLOOD GAS CARBOXYHEMOGLOBIN 0.8 % (0-4); BLOOD GAS HCO3 34 mmol/L (22-26); BLOOD GAS METHEMOGLOBIN 1.1 % (0-2); BLOOD GAS O2 HGB SATURATION 94 % (90-100); BLOOD GAS OXYGEN CONTENT 15.4 Vol % (12.0-20.0); BLOOD GAS PCO2 56 mmHg (38-42); BLOOD GAS PO2 84 mmHg (61-120); BLOOD GAS TOTAL HGB 11.6 G/DL (12.0-16.0); TEMP CORR TO 98.6
[2017-04-15 14:09] LABS: CRITICAL VALUE YES; DRAW SITE RT RADIAL; FIO2 35 %; NUMBER OF ARTERIAL PUNCTURES 1; OXYGEN DEVICE VENTILATOR; STAT NO; ULNAR PULSE PRESENT; VENT SETTINGS CPAP+5/PS+10
[2017-04-15 14:35] LABS: POTASSIUM 3.3 MEQ/L (3.5-5.1)
[2017-04-15] MEDS: ENOXAPARIN SODIUM 40 MG/0.4 ML SYRINGE SQ SCH (15:22)
[2017-04-15] MEDS: LEVOFLOXACIN 250 MG PREMIX INJ 50 ML IV SCH (15:22)
--- NOTE | 2017-04-15 15:28 | HHI.PR ---
Subjective Remarks 72 YOWF with COPD exac,Hypercapnoic RF Extubated today Mild sob On Levophed 2 mcg Had a dose of Tolvapton for hyponatremia Objective Vital Signs Vital Signs Date Time Temp Pulse Resp B/P (MAP) Pulse Ox O2 Delivery O2 Flow Rate FiO2 04/15/17 14:00 118 04/15/17 12:21 92 35 04/15/17 12:00 28 04/15/17 12:00 98.1 94 18 87/52 (64) 97 04/15/17 12:00 94 04/15/17 10:00 109 04/15/17 08:00 98.4 115 18 98/57 (71) 97 04/15/17 08:00 115 04/15/17 08:00 28 04/15/17 06:00 124 04/15/17 05:40 128 94/53 04/15/17 04:00 111 04/15/17 04:00 28 04/15/17 04:00 98.5 111 19 132/65 (87) 95 04/15/17 03:38 97 28 04/15/17 02:28 97 88/55 04/15/17 02:00 102 04/15/17 00:33 101 122/65 04/15/17 00:02 98 28 04/15/17 00:00 100 04/15/17 00:00 98.9 100 18 115/63 (80) 97 04/15/17 00:00 28 04/14/17 23:43 107 122/72 04/14/17 22:00 106 04/14/17 21:45 118 74/47 04/14/17 20:00 97.0 104 18 87/50 (62) 100 04/14/17 20:00 28 04/14/17 20:00 99 28 04/14/17 20:00 104 04/14/17 18:00 97.4 111 19 102/61 (75) 100 04/14/17 16:30 97.4 98 24 157/72 (100) 100 04/14/17 16:30 I/O 04/14/17 04/14/17 04/14/17 04/15/17 04/15/17 04/15/17 07:00 15:00 23:00 07:00 15:00 23:00 Intake Total 200 ml 4057 ml 100 ml Output Total 250 ml 450 ml Balance -50 ml 3607 ml 100 ml Intake IV Total 200 ml 4057 ml 100 ml Output Urine Total 250 ml 450 ml # Bowel Movements 0 0 Result Diagram: 04/15/17 0508 04/15/17 1402 Objective Remarks GENERAL: MBMN WF,NAD SKIN: Warm and dry. HEAD: Normocephalic. EYES: No scleral icterus. No injection or drainage. NECK: Supple, trachea midline. No JVD or lymphadenopathy. CARDIOVASCULAR: Regular rate and rhythm without murmurs, gallops, or rubs. RESPIRATORY: Breath sounds equal bilaterally. No accessory muscle use. Exp rhonchi GASTROINTESTINAL: Abdomen soft, non-tender, nondistended. MUSCULOSKELETAL: No cyanosis, or edema. BACK: Nontender without obvious deformity. No CVA tenderness. A/P Assessment and Plan Hypercapnoic RF S/P Extubation COPD exac Hyponatremia PLAN: IV Solumedrol Aerosol nebs Cont Abx Monitor Lytes Tolvapton 15 mg po daily Tru Robert MD Apr 15, 2017 15:28
[2017-04-15] MEDS: BUDESONIDE-FORMOTEROL 160/4.5 MCG INHALER INH SCH (21:12)
[2017-04-15] MEDS: ASPIRIN 81 MG CHEW TAB CHEW SCH (21:12)
[2017-04-15] MEDS ORDERED: FUROSEMIDE 20 MG/2 ML VIAL IV PUSH SCH (22:15)
[2017-04-16] VITALS (16 sets, daily range): BP systolic 89–101; BP diastolic 50–57; PULSE 102–127; RESP 13–27; TEMP 97.5–98.3; O2SAT 94–99
[2017-04-16] MEDS: INSULIN NovoLIN REGULAR SUPPLEMENTAL SCALE SQ SCH ×6 (01:00→20:12)
[2017-04-16] MEDS: methylPREDNISolone SOD SUCC 40 MG/1 ML VIAL IV PUSH SCH ×3 (02:09→17:23)
[2017-04-16] MEDS: RESP: ALBUTEROL 2.5 MG/IPRATROPIUM 0.5 MG NEB (SCH) NEB ×6 (03:49→23:45)
[2017-04-16 04:45] LABS: MAGNESIUM 2.4 MG/DL (1.5-2.5); POTASSIUM 4.1 MEQ/L (3.5-5.1)
[2017-04-16] MEDS: FAMOTIDINE 20 MG/2 ML VIAL IV PUSH SCH ×2 (05:51→17:23)
[2017-04-16 06:44] LABS: AUTOMATED NEUTROPHIL # 10.9 TH/MM3 (1.8-7.7); HEMO FLAGS DIFF FINAL; LYMPH % 1.2 % (9.0-44.0); LYMPHOCYTE # 0.1 TH/MM3 (1.0-4.8); MEAN CORPUSCULAR HEMOGLOBIN 30.8 PG (27.0-34.0); MEAN CORPUSCULAR HGB CONC 33.8 % (32.0-36.0); MONO % 4.3 % (0.0-8.0); NEUT % 94.5 % (16.0-70.0); PLATELET COUNT 213 TH/MM3 (150-450); RED BLOOD COUNT 3.62 MIL/MM3 (4.00-5.30); RED CELL DISTRIBUTION WIDTH 15.6 % (11.6-17.2); WHITE BLOOD COUNT 11.6 TH/MM3 (4.0-11.0)
[2017-04-16 06:54] LABS: BICARBONATE 35.1 MEQ/L (21.0-32.0); MAGNESIUM 2.5 MG/DL (1.5-2.5); POTASSIUM 4.1 MEQ/L (3.5-5.1)
[2017-04-16] MEDS: TOLVAPTAN 15 MG TAB PO SCH (09:00)
[2017-04-16] MEDS: BUDESONIDE-FORMOTEROL 160/4.5 MCG INHALER INH SCH ×2 (09:15→21:00)
--- NOTE | 2017-04-16 09:56 | HHI.CCPN ---
Subjective Remarks/Hospital Course The patient is a 72-year-old female with past medical history of COPD oxygen- dependent, hypertension and dyslipidemia who presented to [facility] ED with generalized weakness, lethargy and shortness of breath. Her initial ABG on two liters oxygen showed acute hypercapnic respiratory acidosis with a pH of 7.28, CO2 105, pAO2 119, bicarb 48 and saturation of 96%. She was placed on BiPap at 12/5 with 60% FIO2 and a repeat ABG showed worsening respiratory acidosis with a pH of 7.21, CO2 120. She was subsequently intubated with etomidate and succinylcholine and placed on full mechanical ventilation. Also, she was started on a Diprivan infusion for sedation. Her laboratory data was significant for hyponatremia with a sodium level of 117. In the ED, she was given bronchodilator treatments Solu-Medrol 125 mg IV push, magnesium replacement and 500 bolus of normal saline. When seen, the patient is sedated and intubated. Her last admission was in February and, at that time, she had a sodium level of 139. The patient was initially admitted to Dr. Auguste from [facility], however, after the patient was intubated in the ED critical care medicine was consulted for critical care management. 04/15 Patient remains sedated and intubated. She was placed on Levophed 10 mics Patient was given 3L boluses overnight ( 2L 1/2NS, 1L NS) Afebrile. 04/16 Patient is off Levopged s/p extubation yesterday. Awake/ alert.Tachycardic. Na level 125 this morning Objective Vital Signs Date Time Temp Pulse Resp B/P (MAP) Pulse Ox O2 Delivery O2 Flow Rate FiO2 04/16/17 07:20 99 Nasal Cannula 2.00 04/16/17 06:00 121 04/16/17 04:00 97.5 19 101/57 (72) 04/16/17 01:04 30 Intake and Output 04/16/17 04/16/17 04/17/17 08:00 16:00 00:00 Intake Total 1192 ml Output Total 425 ml Balance 767 ml Result Diagram: 04/16/17 0515 04/16/17 0515 Other Results Laboratory Tests Test 04/15/17 13:55 04/15/17 14:02 04/15/17 20:30 04/16/17 02:00 Blood Gas Puncture Site RT RADIAL Blood Gas Patient Temperature 98.6 Blood Gas HCO3 34 mmol/L Blood Gas Base Excess 9.2 mmol/L Blood Gas Oxygen Saturation 94 % Arterial Blood pH 7.41 Arterial Blood Partial Pressure CO2 56 mmHg Arterial Blood Partial Pressure O2 84 mmHg Arterial Blood Oxygen Content 15.4 Vol % Arterial Blood Carboxyhemoglobin 0.8 % Arterial Blood Methemoglobin 1.1 % Blood Gas Hemoglobin 11.6 G/DL Oxygen Delivery Device VENTILATOR Blood Gas Ventilator Setting CPAP+5/PS+10 Blood Gas Inspired Oxygen 35 % Blood Urea Nitrogen 17 MG/DL Creatinine 1.05 MG/DL Random Glucose 141 MG/DL Calcium Level 7.6 MG/DL Sodium Level 125 MEQ/L 123 MEQ/L 124 MEQ/L Potassium Level 3.3 MEQ/L 4.1 MEQ/L Chloride Level 81 MEQ/L Carbon Dioxide Level 36.0 MEQ/L Anion Gap 8 MEQ/L Estimat Glomerular Filtration Rate 52 ML/MIN Phosphorus Level 3.5 MG/DL Magnesium Level 2.4 MG/DL Test 04/16/17 05:15 White Blood Count 11.6 TH/MM3 Red Blood Count 3.62 MIL/MM3 Hemoglobin 11.1 GM/DL Hematocrit 33.0 % Mean Corpuscular Volume 91.0 FL Mean Corpuscular Hemoglobin 30.8 PG Mean Corpuscular Hemoglobin Concent 33.8 % Red Cell Distribution Width 15.6 % Platelet Count 213 TH/MM3 Mean Platelet Volume 7.8 FL Neutrophils (%) (Auto) 94.5 % Lymphocytes (%) (Auto) 1.2 % Monocytes (%) (Auto) 4.3 % Eosinophils (%) (Auto) 0.0 % Basophils (%) (Auto) 0.0 % Neutrophils # (Auto) 10.9 TH/MM3 Lymphocytes # (Auto) 0.1 TH/MM3 Monocytes # (Auto) 0.5 TH/MM3 Eosinophils # (Auto) 0.0 TH/MM3 Basophils # (Auto) 0.0 TH/MM3 CBC Comment DIFF FINAL Differential Comment Blood Urea Nitrogen 20 MG/DL Creatinine 1.23 MG/DL Random Glucose 102 MG/DL Calcium Level 7.8 MG/DL Phosphorus Level 3.6 MG/DL Magnesium Level 2.5 MG/DL Sodium Level 125 MEQ/L Potassium Level 4.1 MEQ/L Chloride Level 82 MEQ/L Carbon Dioxide Level 35.1 MEQ/L Anion Gap 8 MEQ/L Estimat Glomerular Filtration Rate 43 ML/MIN Imaging Last Impressions Chest X-Ray 04/15/17 Signed Impressions: Service Date/Time: Saturday, April 15, 2017 12:38 - CONCLUSION: Gastric tube is positioned within the stomach. Ryan Bearden MD Head CT 04/14/17 0000 Signed Impressions: Service Date/Time: Friday, April 14, 2017 13:18 - CONCLUSION: Normal examination for a patient of this age. No significant change has occurred. Tim Mcarthur MD Cervical Spine CT 04/14/17 Signed Impressions: Service Date/Time: Friday, April 14, 2017 13:18 - CONCLUSION: 1. No acute fracture. Moderate degenerative disc disease in the lower cervical spine with mild AP canal stenosis as above. Tim Mcarthur MD Objective Remarks GENERAL: Patient is 72 yo lying in bed in NAD SKIN: Warm and dry. HEAD: Normocephalic. EYES: No scleral icterus. No injection or drainage. NECK: Supple, trachea midline. No JVD or lymphadenopathy. CARDIOVASCULAR:Tachycardic without murmurs, gallops, or rubs. RESPIRATORY: Breath sounds equal bilaterally. Diminished. GASTROINTESTINAL: Abdomen soft, non-tender, nondistended. MUSCULOSKELETAL: No cyanosis, or edema. Neuro: Awake A/P Assessment and Plan 1. Resp Insuff -extubated 04/15 2. COPD exacerbation oxygen-dependent 3. Hyponatremia 4. Hyperlipidemia Plan Neuro: Awake and alert CT brain in the ED negative for acute intracranial process. Pulm: Continue with oxygen and maintain sats above 92%. Bronchodilators, Solu-Medrol 40mg IV q. Q8 NIPPV PRN for resp distress Check CTA chest r/o PE CV: ,Monitor HR and BP and maintain MAP>65 mmHg. Echo from February showed an EF of 55-60%. Continue with aspirin 81 mg daily, Pravachol 40 mg daily. : Monitor renal function Is and Os and electrolyte replacement per protocol. sodium level q. 4-hour. Renal is following- Dr. Tran- Given Lasix and Samsca x 1 dose yesterday. Change IVF D5NS@30ml/hr ( Patient was hypoglycemic this morning and given 1amp D50) Will diurese with Lasix 20mg IV x1 Avoid over correction of sodium and maximum 9 mEq in 24 hours. ID: Continue with empiric abx( Levaquin) for COPD exace and monitor for signs of infections( fever and WBC). GI: On Pepcid 10 mg IV q. 12 for GI prophylaxis. Speech eval diet per speech Endo: SSI with Accu-Chek q. 4-hour for glycemic control Heme: Monitor CBC. GI prophylaxis with Pepcid and DVT prophylaxis with SCDs/ Lovenox 40 mg subcu daily. Level 3 Sander Whitmore MD Apr 16, 2017 09:56
[2017-04-16] MEDS ORDERED: FUROSEMIDE 20 MG/2 ML VIAL IV PUSH ONE (10:00)
[2017-04-16] MEDS ORDERED: DEXT 5%-NACL 0.9% 1000 ML INJ 1,000 ML IV SCH (10:15)
[2017-04-16] MEDS ORDERED: METOPROLOL TARTRATE 5 MG/5 ML VIAL IV PUSH ONE (13:45)
[2017-04-16] MEDS: PRAVASTATIN SOD 40 MG TAB PO SCH (13:46)
[2017-04-16] MEDS: ALPRAZolam 0.25 MG TAB PO PRN ×2 (13:47→20:11)
--- NOTE | 2017-04-16 14:15 | HHI.NPPN ---
Subjective History of Present Illness Hx of COPD Hyponatremia Objective Data Data Vital Signs Date Time Temp Pulse Resp B/P (MAP) Pulse Ox O2 Delivery O2 Flow Rate FiO2 04/16/17 10:00 124 04/16/17 08:00 97.8 124 20 98/50 (66) 99 04/16/17 08:00 113 04/16/17 07:20 99 Nasal Cannula 2.00 04/16/17 06:00 121 04/16/17 04:00 97.5 110 19 101/57 (72) 98 04/16/17 04:00 110 04/16/17 02:00 102 04/16/17 01:04 98 30 04/16/17 00:00 104 04/16/17 00:00 98.0 104 13 91/55 (67) 96 04/16/17 00:00 104 91/55 04/15/17 22:47 97 30 04/15/17 22:00 108 04/15/17 22:00 108 103/51 04/15/17 22:00 98.0 108 14 103/51 (68) 95 04/15/17 20:00 97.8 106 11 106/55 (72) 95 04/15/17 20:00 106 04/15/17 19:54 96 Nasal Cannula 2.00 04/15/17 19:00 108 103/55 04/15/17 18:00 109 04/15/17 16:46 107 77/44 04/15/17 16:00 108 04/15/17 16:00 98.0 108 10 78/41 (53) 94 04/15/17 15:23 119 97/50 04/15/17 15:00 95 Nasal Cannula 3 32 -: 04/16/17 0515 04/16/17 0910 Physical Exam General Appearance: Well Developed, Well Nourished Neck Neck Exam: Neck Supple Pulmonary Resp Exam: Decreased Bases Cardiology CV Exam: Tachycardia Gastrointestinal/Abdomen GI Exam: Soft, Non-Tender, Bowel Sounds Present Extremeties Extremities Exam: Trace Edema Assessment/Plan Problem List: (1) Hyponatremia ICD Codes: E87.1 - Hypo-osmolality and hyponatremia Status: Acute Plan: This may be likely due to underlying 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 on tolvaptan 15 mg daily UOP improved changed IVF D5 NS due to hypoglycemia Na 126 improved with medication (2) COPD (chronic obstructive pulmonary disease) ICD Codes: J44.9 - Chronic obstructive pulmonary disease, unspecified Plan: Patient is dependent on home oxygen (3) HTN (hypertension) ICD Codes: I10 - Essential (primary) hypertension Plan: Continue to monitor (4) Acute and chronic respiratory failure ICD Codes: J96.20 - Acute and chronic respiratory failure, unspecified whether with hypoxia or hypercapnia Plan: On o2 Problem Qualifiers (1) COPD (chronic obstructive pulmonary disease): Qualified Codes: J44.1 - Chronic obstructive pulmonary disease with (acute) exacerbation Nasima Tran MD Apr 16, 2017 14:15
[2017-04-16] MEDS ORDERED: IOHEXOL 350 MG/ML 10 ML VIAL (for RAD DIAG) IVCONTRAST ONE (15:59)
--- NOTE | 2017-04-16 16:22 | RADRPT ---
EXAM DATE/TIME: 04/16/2017 15:47 [facility] COMPARISON: No previous studies available for comparison. INDICATIONS : Shortness of breath. IV CONTRAST: 50 cc Omnipaque 350 (iohexol) IV RADIATION DOSE: 6.83 CTDIvol (mGy) MEDICAL HISTORY : Chronic obstructive pulmonary disease. Hypertension. Cardiovascular disease SURGICAL HISTORY : Appendectomy. ENCOUNTER: Initial ACUITY: 1 day PAIN SCALE: 0/10 LOCATION: Bilateral chest TECHNIQUE: Volumetric scanning of the chest was performed using a pulmonary embolism protocol MIP images were re constructed. Using automated exposure control and adjustment of the mA and/or kV according to patien t size, radiation dose was kept as low as reasonably achievable to obtain optimal diagnostic quality images. DICOM format image data is available electronically for review and comparison. Follow-up recommendations for detected pulmonary nodules are based at a minimum on nodule size and pa tient risk factors according to Fleischner Society Guidelines. FINDINGS: PULMONARY ARTERIES: No filling defects are seen in the pulmonary arteries through the segmental level. LUNGS: There is mild basilar atelectasis. There is an obstructing process involving the proximal aspect of t he lower lobe bronchus on the right. PLEURAE: Small bilateral pleural effusions. MEDIASTINUM: There is good visualization of the great vessels of the middle mediastinum. No evidence of mediastin al or hilar adenopathy/mass. MUSCULOSKELETAL: Within normal limits for patient age. MISCELLANEOUS: The visualized upper abdominal organs demonstrate no acute abnormality. CONCLUSION: No evidence of pulmonary embolism. Obstructing process involving lower lobe segmental bronchus on the right. This is likely a mucous plug, however endobronchial mass is not excluded. Lewis Sykes MD on April 16, 2017 at 16:09 Board Certified Radiologist. This report was verified electronically.
[2017-04-16] MEDS: ENOXAPARIN SODIUM 40 MG/0.4 ML SYRINGE SQ SCH (17:23)
[2017-04-16] MEDS: LEVOFLOXACIN 250 MG PREMIX INJ 50 ML IV SCH (17:24)
--- NOTE | 2017-04-16 18:26 | HHI.PR ---
Subjective Remarks 72 YOWF with COPD exac,Hypercapnoic RF Extubated 04/15 Mild sob Had Techcardia CTA No PE, RLL mucous plugs? Breathing better Objective Vital Signs Vital Signs Date Time Temp Pulse Resp B/P (MAP) Pulse Ox O2 Delivery O2 Flow Rate FiO2 04/16/17 18:00 109 04/16/17 16:00 124 04/16/17 16:00 97.9 124 17 89/52 (64) 94 04/16/17 14:00 124 04/16/17 12:00 127 04/16/17 12:00 98.1 127 27 97/52 (67) 95 04/16/17 10:00 124 04/16/17 08:00 97.8 124 20 98/50 (66) 99 04/16/17 08:00 113 04/16/17 07:20 99 Nasal Cannula 2.00 04/16/17 06:00 121 04/16/17 04:00 97.5 110 19 101/57 (72) 98 04/16/17 04:00 110 04/16/17 02:00 102 04/16/17 01:04 98 30 04/16/17 00:00 104 04/16/17 00:00 98.0 104 13 91/55 (67) 96 04/16/17 00:00 104 91/55 04/15/17 22:47 97 30 04/15/17 22:00 108 04/15/17 22:00 108 103/51 04/15/17 22:00 98.0 108 14 103/51 (68) 95 04/15/17 20:00 97.8 106 11 106/55 (72) 95 04/15/17 20:00 106 04/15/17 19:54 96 Nasal Cannula 2.00 04/15/17 19:00 108 103/55 I/O 04/15/17 04/15/17 04/15/17 04/16/17 04/16/17 04/16/17 07:00 15:00 23:00 07:00 15:00 23:00 Intake Total 4057 ml 303 ml 104 ml 1192 ml 400 ml Output Total 450 ml 950 ml 425 ml 800 ml Balance 3607 ml 303 ml -846 ml 767 ml -400 ml Intake Oral 400 ml IV Total 4057 ml 303 ml 104 ml 1192 ml Output Urine Total 450 ml 950 ml 425 ml 800 ml # Bowel Movements 0 0 0 0 Result Diagram: 04/16/17 0515 04/16/17 1352 Objective Remarks GENERAL: MBMN WF,NAD SKIN: Warm and dry. HEAD: Normocephalic. EYES: No scleral icterus. No injection or drainage. NECK: Supple, trachea midline. No JVD or lymphadenopathy. CARDIOVASCULAR: Regular rate and rhythm without murmurs, gallops, or rubs. RESPIRATORY: Breath sounds equal bilaterally. No accessory muscle use. Exp rhonchi GASTROINTESTINAL: Abdomen soft, non-tender, nondistended. MUSCULOSKELETAL: No cyanosis, or edema. BACK: Nontender without obvious deformity. No CVA tenderness. A/P Assessment and Plan Hypercapnoic RF S/P Extubation COPD exac Hyponatremia PLAN: IV Solumedrol Aerosol nebs Cont Abx Monitor Lytes Tolvapton 15 mg po daily Mucomyst Tru Ospina MD Apr 16, 2017 18:26
[2017-04-16] MEDS: ASPIRIN 81 MG CHEW TAB CHEW SCH (20:11)
[2017-04-17] VITALS (17 sets, daily range): BP systolic 93–118; BP diastolic 51–58; PULSE 89–128; RESP 17–42; TEMP 97.9–98.2; O2SAT 92–100
[2017-04-17] MEDS: INSULIN NovoLIN REGULAR SUPPLEMENTAL SCALE SQ SCH ×6 (01:00→20:10)
[2017-04-17] MEDS: methylPREDNISolone SOD SUCC 40 MG/1 ML VIAL IV PUSH SCH ×3 (01:22→16:52)
[2017-04-17] MEDS: RESP: ALBUTEROL 2.5 MG/IPRATROPIUM 0.5 MG NEB (SCH) NEB ×6 (03:59→23:19)
[2017-04-17] MEDS: RESP: ACETYLCYSTEINE 20% 4 ML NEB NEB SCH ×4 (03:59→19:26)
[2017-04-17 05:18] LABS: AUTOMATED NEUTROPHIL # 10.3 TH/MM3 (1.8-7.7); HEMATOCRIT 31.6 % (35.0-46.0); HEMO FLAGS DIFF FINAL; LYMPH % 1.2 % (9.0-44.0); LYMPHOCYTE # 0.1 TH/MM3 (1.0-4.8); MEAN CELL VOLUME 91.8 FL (80.0-100.0); MEAN CORPUSCULAR HEMOGLOBIN 31.8 PG (27.0-34.0); MEAN CORPUSCULAR HGB CONC 34.7 % (32.0-36.0); MONO % 3.4 % (0.0-8.0); NEUT % 95.4 % (16.0-70.0); PLATELET COUNT 202 TH/MM3 (150-450); RED BLOOD COUNT 3.44 MIL/MM3 (4.00-5.30); RED CELL DISTRIBUTION WIDTH 15.9 % (11.6-17.2); WHITE BLOOD COUNT 10.8 TH/MM3 (4.0-11.0)
[2017-04-17 05:44] LABS: BICARBONATE 37.7 MEQ/L (21.0-32.0); POTASSIUM 4.1 MEQ/L (3.5-5.1)
[2017-04-17] MEDS: FAMOTIDINE 20 MG/2 ML VIAL IV PUSH SCH ×2 (06:46→16:51)
--- NOTE | 2017-04-17 08:56 | HHI.CCPN ---
Subjective Remarks/Hospital Course The patient is a 72-year-old female with past medical history of COPD oxygen- dependent, hypertension and dyslipidemia who presented to [facility] ED with generalized weakness, lethargy and shortness of breath. Her initial ABG on two liters oxygen showed acute hypercapnic respiratory acidosis with a pH of 7.28, CO2 105, pAO2 119, bicarb 48 and saturation of 96%. She was placed on BiPap at 12/5 with 60% FIO2 and a repeat ABG showed worsening respiratory acidosis with a pH of 7.21, CO2 120. She was subsequently intubated with etomidate and succinylcholine and placed on full mechanical ventilation. Also, she was started on a Diprivan infusion for sedation. Her laboratory data was significant for hyponatremia with a sodium level of 117. In the ED, she was given bronchodilator treatments Solu-Medrol 125 mg IV push, magnesium replacement and 500 bolus of normal saline. When seen, the patient is sedated and intubated. Her last admission was in February and, at that time, she had a sodium level of 139. The patient was initially admitted to Dr. Auguste from [facility], however, after the patient was intubated in the ED critical care medicine was consulted for critical care management. 04/15 Patient remains sedated and intubated. She was placed on Levophed 10 mics Patient was given 3L boluses overnight ( 2L 1/2NS, 1L NS) Afebrile. 04/16 Patient is off Levophed s/p extubation yesterday. Awake/ alert.Tachycardic. Na level 125 this morning 04/17 No events overnight. CTA chest yesterday showed no PE, Na level 130 this morning. Objective Vital Signs Date Time Temp Pulse Resp B/P (MAP) Pulse Ox O2 Delivery O2 Flow Rate FiO2 04/17/17 07:56 99 Nasal Cannula 2.00 04/17/17 06:00 115 04/17/17 04:00 98.1 17 103/51 (68) 04/16/17 01:04 30 Intake and Output 04/17/17 04/17/17 04/18/17 08:00 16:00 00:00 Intake Total 360 ml Output Total 1300 ml Balance -940 ml Result Diagram: 04/17/17 0500 04/17/17 0500 Other Results Laboratory Tests Test 04/16/17 09:10 04/16/17 13:52 04/16/17 17:45 04/16/17 21:15 Sodium Level 126 MEQ/L 126 MEQ/L 125 MEQ/L 125 MEQ/L Test 04/17/17 01:20 04/17/17 05:00 Sodium Level 127 MEQ/L 130 MEQ/L White Blood Count 10.8 TH/MM3 Red Blood Count 3.44 MIL/MM3 Hemoglobin 10.9 GM/DL Hematocrit 31.6 % Mean Corpuscular Volume 91.8 FL Mean Corpuscular Hemoglobin 31.8 PG Mean Corpuscular Hemoglobin Concent 34.7 % Red Cell Distribution Width 15.9 % Platelet Count 202 TH/MM3 Mean Platelet Volume 7.6 FL Neutrophils (%) (Auto) 95.4 % Lymphocytes (%) (Auto) 1.2 % Monocytes (%) (Auto) 3.4 % Eosinophils (%) (Auto) 0.0 % Basophils (%) (Auto) 0.0 % Neutrophils # (Auto) 10.3 TH/MM3 Lymphocytes # (Auto) 0.1 TH/MM3 Monocytes # (Auto) 0.4 TH/MM3 Eosinophils # (Auto) 0.0 TH/MM3 Basophils # (Auto) 0.0 TH/MM3 CBC Comment DIFF FINAL Differential Comment Blood Urea Nitrogen 22 MG/DL Creatinine 1.34 MG/DL Random Glucose 117 MG/DL Calcium Level 7.9 MG/DL Potassium Level 4.1 MEQ/L Chloride Level 88 MEQ/L Carbon Dioxide Level 37.7 MEQ/L Anion Gap 4 MEQ/L Estimat Glomerular Filtration Rate 39 ML/MIN Imaging Last Impressions CT Angiography 04/16/17 0000 Signed Impressions: Service Date/Time: Sunday, April 16, 2017 15:47 - CONCLUSION: No evidence of pulmonary embolism. Obstructing process involving lower lobe segmental bronchus on the right. This is likely a mucous plug, however endobronchial mass is not excluded. Lewis Sykes MD Chest X-Ray 04/15/17 0000 Signed Impressions: Service Date/Time: Saturday, April 15, 2017 12:38 - CONCLUSION: Gastric tube is positioned within the stomach. yRan Bearden MD Head CT 04/14/17 0000 Signed Impressions: Service Date/Time: Friday, April 14, 2017 13:18 - CONCLUSION: Normal examination for a patient of this age. No significant change has occurred. Tim Mcarthur MD Cervical Spine CT 04/14/17 0000 Signed Impressions: Service Date/Time: Friday, April 14, 2017 13:18 - CONCLUSION: 1. No acute fracture. Moderate degenerative disc disease in the lower cervical spine with mild AP canal stenosis as above. Tim Mcarthur MD Objective Remarks GENERAL: Patient is 72 yo lying in bed in NAD SKIN: Warm and dry. HEAD: Normocephalic. EYES: No scleral icterus. No injection or drainage. NECK: Supple, trachea midline. No JVD or lymphadenopathy. CARDIOVASCULAR:Tachycardic without murmurs, gallops, or rubs. RESPIRATORY: Breath sounds equal bilaterally. Diminished. GASTROINTESTINAL: Abdomen soft, non-tender, nondistended. MUSCULOSKELETAL: No cyanosis, or edema. Neuro: Awake A/P Assessment and Plan 1. Resp Insuff -extubated 04/15 2. COPD exacerbation oxygen-dependent 3. Hyponatremia 4. Hyperlipidemia 5 Sinus tachycardia Plan Neuro: Awake and alert CT brain in the ED negative for acute intracranial process. Pulm: Continue with oxygen and maintain sats above 92%. Bronchodilators, Solu-Medrol 40mg IV q. Q8 NIPPV PRN for resp distress CTA chest negative for PE, likley mucous plug segmental bronchus on right. Pulm is following- Dr. Robert. On Mucomyst, Symbicort, add IS CV: ,Monitor HR and BP and maintain MAP>[address] Lopressor 12.5mg BID for rate control. Echo from February showed an EF of 55-60%. Continue with aspirin 81 mg daily, Pravachol 40 mg daily. : Monitor renal function Is and Os and electrolyte replacement per protocol. sodium level q. 4-hour. Renal is following- Dr. Tran- Given Lasix and Samsca x 1 dose yesterday. d/c IVF, Avoid over correction of sodium and maximum 9 mEq in 24 hours. On Tolvaptan 15mg daily ID: Continue with empiric abx( Levaquin) for COPD exace and monitor for signs of infections( fever and WBC). GI: On Pepcid 10 mg IV q. 12 for GI prophylaxis. On soft thin diet Endo: SSI with Accu-Chek q. 4-hour for glycemic control Heme: Monitor CBC. GI prophylaxis with Pepcid and DVT prophylaxis with SCDs/ Lovenox 40 mg subcu daily. Lines: Right IJ CVP placed 04/15 Level 3 Sander Whitmore MD Apr 17, 2017 08:56
[2017-04-17] MEDS: PRAVASTATIN SOD 40 MG TAB PO SCH (09:28)
[2017-04-17] MEDS: TOLVAPTAN 15 MG TAB PO SCH (09:29)
[2017-04-17] MEDS: BUDESONIDE-FORMOTEROL 160/4.5 MCG INHALER INH SCH ×2 (09:30→20:07)
--- NOTE | 2017-04-17 12:46 | HHI.NPPN ---
Subjective History of Present Illness Hx of COPD Hyponatremia Objective Data Data Vital Signs Date Time Temp Pulse Resp B/P (MAP) Pulse Ox O2 Delivery O2 Flow Rate FiO2 04/17/17 07:56 99 Nasal Cannula 2.00 04/17/17 06:00 115 04/17/17 04:00 108 04/17/17 04:00 98.1 108 17 103/51 (68) 97 04/17/17 03:59 98 Nasal Cannula 2.00 04/17/17 02:00 108 04/17/17 00:00 110 04/17/17 00:00 98.0 110 18 93/53 (66) 100 04/16/17 23:46 98 Nasal Cannula 2.00 04/16/17 22:00 124 04/16/17 20:00 110 04/16/17 20:00 98.3 110 23 97/54 (68) 99 04/16/17 19:51 99 Nasal Cannula 2.00 04/16/17 18:00 109 04/16/17 16:00 124 04/16/17 16:00 97.9 124 17 89/52 (64) 94 04/16/17 14:00 124 -: 04/17/17 0500 04/17/17 0930 Physical Exam General Appearance: Well Developed, Well Nourished Neck Neck Exam: Neck Supple Pulmonary Resp Exam: Decreased Bases Cardiology CV Exam: Tachycardia Gastrointestinal/Abdomen GI Exam: Soft, Non-Tender, Bowel Sounds Present Extremeties Extremities Exam: Trace Edema Assessment/Plan Problem List: (1) Hyponatremia ICD Codes: E87.1 - Hypo-osmolality and hyponatremia Status: Acute Plan: This may be likely due to underlying 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 on tolvaptan 15 mg daily Follow BMP Na 130 (2) COPD (chronic obstructive pulmonary disease) ICD Codes: J44.9 - Chronic obstructive pulmonary disease, unspecified Plan: Patient is dependent on home oxygen (3) HTN (hypertension) ICD Codes: I10 - Essential (primary) hypertension Plan: Continue to monitor (4) Acute and chronic respiratory failure ICD Codes: J96.20 - Acute and chronic respiratory failure, unspecified whether with hypoxia or hypercapnia Plan: On Bipap Problem Qualifiers (1) COPD (chronic obstructive pulmonary disease): Qualified Codes: J44.1 - Chronic obstructive pulmonary disease with (acute) exacerbation Nasima Tran MD Apr 17, 2017 12:46
[2017-04-17 14:24] LABS: CREATINE KINASE 109 U/L (26-192)
[2017-04-17 14:36] LABS: CKMB 2.9 NG/ML (0.5-3.6)
--- NOTE | 2017-04-17 14:41 | EKG ---
Date Performed: 04/17/2017 Time Performed: 13:32:08 PTAGE: 72 years EKG: SINUS TACHYCARDIA NONSPECIFIC T-WAVE ABNORMALITY ABNORMAL RHYTHM ECG Compared to prior elec trocardiogram, Rate has increased and mild diffuse ST elevation has resolved. PREVIOUS TRACING : 04/14/2017 11.43 DOCTOR: Jameson Macias Interpretating Date/Time 04/17/2017 14:38:58
[2017-04-17] MEDS: METOPROLOL TARTRATE 25 MG TAB PO SCH ×2 (15:09→20:06)
[2017-04-17] MEDS: ENOXAPARIN SODIUM 40 MG/0.4 ML SYRINGE SQ SCH (15:10)
[2017-04-17] MEDS: LEVOFLOXACIN 250 MG PREMIX INJ 50 ML IV SCH (15:24)
--- NOTE | 2017-04-17 18:49 | HHI.PR ---
Subjective Remarks 72 YOWF with COPD exac,Hypercapnoic RF Extubated 04/15 Mild sob Had Techcardia CTA No PE, RLL mucous plugs? Breathing better Sod level improving Does't like the food here Objective Vital Signs Vital Signs Date Time Temp Pulse Resp B/P (MAP) Pulse Ox O2 Delivery O2 Flow Rate FiO2 04/17/17 18:00 110 04/17/17 16:00 98.2 121 24 110/56 (74) 92 04/17/17 16:00 121 04/17/17 14:00 115 04/17/17 12:00 98.0 128 24 106/52 (70) 94 04/17/17 12:00 128 04/17/17 10:00 120 04/17/17 08:00 97.9 106 18 102/52 (69) 99 04/17/17 08:00 106 04/17/17 07:56 99 Nasal Cannula 2.00 04/17/17 06:00 115 04/17/17 04:00 108 04/17/17 04:00 98.1 108 17 103/51 (68) 97 04/17/17 03:59 98 Nasal Cannula 2.00 04/17/17 02:00 108 04/17/17 00:00 110 04/17/17 00:00 98.0 110 18 93/53 (66) 100 04/16/17 23:46 98 Nasal Cannula 2.00 04/16/17 22:00 124 04/16/17 20:00 110 04/16/17 20:00 98.3 110 23 97/54 (68) 99 04/16/17 19:51 99 Nasal Cannula 2.00 I/O 04/16/17 04/16/17 04/16/17 04/17/17 04/17/17 04/17/17 07:00 15:00 23:00 07:00 15:00 23:00 Intake Total 1192 ml 120 ml 510 ml 360 ml 90 ml 850 ml Output Total 425 ml 800 ml 1300 ml 1450 ml Balance 767 ml 120 ml -290 ml -940 ml 90 ml -600 ml Intake Oral 400 ml 800 ml IV Total 1192 ml 120 ml 110 ml 360 ml 90 ml 50 ml Output Urine Total 425 ml 800 ml 1300 ml 1450 ml # Bowel Movements 0 0 0 0 Result Diagram: 04/17/17 0500 04/17/17 1710 Objective Remarks GENERAL: MBMN WF,NAD SKIN: Warm and dry. HEAD: Normocephalic. EYES: No scleral icterus. No injection or drainage. NECK: Supple, trachea midline. No JVD or lymphadenopathy. CARDIOVASCULAR: Regular rate and rhythm without murmurs, gallops, or rubs. RESPIRATORY: Breath sounds equal bilaterally. No accessory muscle use. Exp rhonchi GASTROINTESTINAL: Abdomen soft, non-tender, nondistended. MUSCULOSKELETAL: No cyanosis, or edema. BACK: Nontender without obvious deformity. No CVA tenderness. A/P Assessment and Plan Hypercapnoic RF S/P Extubation COPD exac Hyponatremia PLAN: IV Solumedrol Aerosol nebs Cont Abx Monitor Lytes Mucomyst Tru Ospina MD Apr 17, 2017 18:49
[2017-04-17] MEDS: ASPIRIN 81 MG CHEW TAB CHEW SCH (20:06)
[2017-04-18] VITALS (22 sets, daily range): BP systolic 83–145; BP diastolic 54–67; PULSE 93–121; RESP 19–42; TEMP 97.9–98.3; O2SAT 88–97
[2017-04-18] MEDS: INSULIN NovoLIN REGULAR SUPPLEMENTAL SCALE SQ SCH ×6 (01:00→20:18)
[2017-04-18] MEDS: methylPREDNISolone SOD SUCC 40 MG/1 ML VIAL IV PUSH SCH ×3 (02:00→17:01)
[2017-04-18] MEDS: RESP: ALBUTEROL 2.5 MG/IPRATROPIUM 0.5 MG NEB (SCH) NEB ×4 (03:54→14:48)
[2017-04-18] MEDS: RESP: ACETYLCYSTEINE 20% 4 ML NEB NEB SCH ×4 (03:55→21:27)
[2017-04-18] MEDS: FAMOTIDINE 20 MG/2 ML VIAL IV PUSH SCH ×2 (04:46→17:02)
[2017-04-18 05:01] LABS: AUTOMATED NEUTROPHIL # 10.1 TH/MM3 (1.8-7.7); BASOPHIL % 0.2 % (0.0-2.0); HEMATOCRIT 31.2 % (35.0-46.0); LYMPH % 1.7 % (9.0-44.0); LYMPHOCYTE # 0.2 TH/MM3 (1.0-4.8); MEAN CELL VOLUME 92.3 FL (80.0-100.0); MEAN CORPUSCULAR HEMOGLOBIN 30.8 PG (27.0-34.0); MEAN CORPUSCULAR HGB CONC 33.3 % (32.0-36.0); MONO % 4.7 % (0.0-8.0); NEUT % 93.4 % (16.0-70.0); PLATELET COUNT 219 TH/MM3 (150-450); RED BLOOD COUNT 3.38 MIL/MM3 (4.00-5.30); RED CELL DISTRIBUTION WIDTH 15.6 % (11.6-17.2); WHITE BLOOD COUNT 10.8 TH/MM3 (4.0-11.0)
[2017-04-18 05:04] LABS: HEMO FLAGS AUTO DIFF
[2017-04-18 05:31] LABS: BICARBONATE 38.7 MEQ/L (21.0-32.0); POTASSIUM 4.3 MEQ/L (3.5-5.1)
[2017-04-18 06:03] LABS: SCAN/DIFF AUTO DIFF CONFIRMED
[2017-04-18] MEDS: TOLVAPTAN 15 MG TAB PO SCH (09:00)
[2017-04-18] MEDS: PRAVASTATIN SOD 40 MG TAB PO SCH (09:19)
[2017-04-18] MEDS: METOPROLOL TARTRATE 25 MG TAB PO SCH ×2 (09:20→20:11)
[2017-04-18] MEDS: BUDESONIDE-FORMOTEROL 160/4.5 MCG INHALER INH SCH ×2 (09:31→20:12)
--- NOTE | 2017-04-18 13:05 | HHI.CCPN ---
Subjective Remarks/Hospital Course The patient is a 72-year-old female with past medical history of COPD oxygen- dependent, hypertension and dyslipidemia who presented to [facility] ED with generalized weakness, lethargy and shortness of breath. Her initial ABG on two liters oxygen showed acute hypercapnic respiratory acidosis with a pH of 7.28, CO2 105, pAO2 119, bicarb 48 and saturation of 96%. She was placed on BiPap at 12/5 with 60% FIO2 and a repeat ABG showed worsening respiratory acidosis with a pH of 7.21, CO2 120. She was subsequently intubated with etomidate and succinylcholine and placed on full mechanical ventilation. Also, she was started on a Diprivan infusion for sedation. Her laboratory data was significant for hyponatremia with a sodium level of 117. In the ED, she was given bronchodilator treatments Solu-Medrol 125 mg IV push, magnesium replacement and 500 bolus of normal saline. When seen, the patient is sedated and intubated. Her last admission was in February and, at that time, she had a sodium level of 139. The patient was initially admitted to Dr. Auguste from [facility], however, after the patient was intubated in the ED critical care medicine was consulted for critical care management. 04/15 Patient remains sedated and intubated. She was placed on Levophed 10 mics Patient was given 3L boluses overnight ( 2L 1/2NS, 1L NS) Afebrile. 04/16 Patient is off Levophed s/p extubation yesterday. Awake/ alert.Tachycardic. Na level 125 this morning 04/17 No events overnight. CTA chest yesterday showed no PE, Na level 130 this morning. 04/18: Patient is extubated, tolerating well. BiPAP overnight. Na improved to 134. CTA showed ? RLL mucus plug. Check CXR in am Objective Vital Signs Date Time Temp Pulse Resp B/P (MAP) Pulse Ox O2 Delivery O2 Flow Rate FiO2 04/18/17 11:00 110 33 111/55 (73) 95 04/18/17 08:35 Nasal Cannula 2.00 04/18/17 08:00 98.0 04/18/17 04:01 30 Intake and Output 04/18/17 04/18/17 04/19/17 08:00 16:00 00:00 Intake Total 1000 ml Output Total 1600 ml Balance -600 ml Result Diagram: 04/18/17 0415 04/18/[address] Angiography 04/16/17 0000 Signed Impressions: Service Date/Time: Sunday, April 16, 2017 15:47 - CONCLUSION: No evidence of pulmonary embolism. Obstructing process involving lower lobe segmental bronchus on the right. This is likely a mucous plug, however endobronchial mass is not excluded. Lewis Sykes MD Chest X-Ray 04/15/17 0000 Signed Impressions: Service Date/Time: Saturday, April 15, 2017 12:38 - CONCLUSION: Gastric tube is positioned within the stomach. Ryan Bearden MD Head CT 04/14/17 0000 Signed Impressions: Service Date/Time: Friday, April 14, 2017 13:18 - CONCLUSION: Normal examination for a patient of this age. No significant change has occurred. Tim Mcarthur MD Cervical Spine CT 04/14/17 0000 Signed Impressions: Service Date/Time: Friday, April 14, 2017 13:18 - CONCLUSION: 1. No acute fracture. Moderate degenerative disc disease in the lower cervical spine with mild AP canal stenosis as above. Tim Mcarthur MD Objective Remarks GENERAL: Patient is 72 yo lying in bed in NAD SKIN: Warm and dry. HEAD: Normocephalic. EYES: No scleral icterus. No injection or drainage. NECK: Supple, trachea midline. No JVD or lymphadenopathy. CARDIOVASCULAR: S1 S2 normal no murmur, no, gallops, or rubs. RESPIRATORY: Breath sounds equal bilaterally. Diminished. GASTROINTESTINAL: Abdomen soft, non-tender, nondistended. MUSCULOSKELETAL: No cyanosis, or edema. Neuro: Awake, alert oriented. No focal deficits Urinary Catheter: Yes Assessment to: Continue A/P Assessment and Plan Assessment: 1. Resp failure -extubated 04/15 2. COPD exacerbation oxygen-dependent 3. Hyponatremia 4. Hyperlipidemia 5 Sinus tachycardia Plan Neuro: Awake and alert CT brain in the ED negative for acute intracranial process. Pulm: Continue with oxygen and maintain sats above 92%. Bronchodilators, Solu-Medrol 40mg IV q. Q8 NIPPV PRN for resp distress CTA chest negative for PE, likley mucous plug segmental bronchus on right. Pulm is following- Dr. Aneja. On Mucomyst, Symbicort, add IS CV: ,Monitor HR and BP and maintain MAP>65 mmHg. Lopressor 12.5mg BID for rate control. Echo from February showed an EF of 55-60%. Continue with aspirin 81 mg daily, Pravachol 40 mg daily. : Monitor renal function Is and Os and electrolyte replacement per protocol. sodium level q. 4-hour, last Na 134. Renal is following- Dr. Tran- Given Lasix and Samsca x 1 dose yesterday. Avoid over correction of sodium and maximum 9 mEq in 24 hours. On Tolvaptan 15mg daily ID: Continue with empiric abx (Levaquin) for COPD exacerbation and monitor for signs of infections( fever and WBC). GI: On Pepcid 10 mg IV q. 12 for GI prophylaxis. On soft thin diet Endo: SSI with Accu-Chek q. 4-hour for glycemic control Heme: Monitor CBC. GI prophylaxis with Pepcid and DVT prophylaxis with SCDs/ Lovenox 40 mg subcu daily. Lines: Right IJ CVP placed 04/15 Level 3 An Saucedo MD Apr 18, 2017 13:05
--- NOTE | 2017-04-18 14:17 | HHI.NPPN ---
Subjective History of Present Illness Hx of COPD Hyponatremia Objective Data Data Vital Signs Date Time Temp Pulse Resp B/P (MAP) Pulse Ox O2 Delivery O2 Flow Rate FiO2 04/18/17 14:00 99 04/18/17 13:00 102 31 122/59 (80) 91 04/18/17 12:00 112 04/18/17 12:00 97.9 112 28 114/58 (76) 97 04/18/17 11:00 110 33 111/55 (73) 95 04/18/17 10:00 119 20 132/65 (87) 94 04/18/17 10:00 119 04/18/17 09:01 121 40 83/66 (72) 92 04/18/17 08:35 97 Nasal Cannula 2.00 04/18/17 08:00 100 04/18/17 08:00 98.0 100 24 121/59 (79) 95 04/18/17 07:00 119 26 145/67 (93) 93 04/18/17 07:00 95 Nasal Cannula 2.00 04/18/17 06:00 108 04/18/17 06:00 108 23 121/64 (83) 95 04/18/17 05:00 97 20 123/59 (80) 95 04/18/17 04:01 95 30 04/18/17 04:00 99 Bi-Pap 30 04/18/17 04:00 98.1 98 20 119/59 (79) 94 04/18/17 04:00 98 04/18/17 02:00 95 04/18/17 01:06 94 30 04/18/17 00:00 98.3 93 19 104/54 (71) 96 04/18/17 00:00 93 04/18/17 00:00 94 Bi-Pap 30 04/17/17 22:02 95 30 04/17/17 22:00 89 04/17/17 21:45 96 30 04/17/17 20:00 98.0 121 42 118/58 (78) 95 04/17/17 20:00 95 Nasal Cannula 2.00 04/17/17 20:00 121 04/17/17 19:26 98 Nasal Cannula 2.00 04/17/17 18:00 110 04/17/17 16:00 98.2 121 24 110/56 (74) 92 04/17/17 16:00 121 -: 04/18/17 0415 04/18/17 1010 Physical Exam General Appearance: Well Developed, Well Nourished Neck Neck Exam: Neck Supple Pulmonary Resp Exam: Decreased Bases Cardiology CV Exam: Tachycardia Gastrointestinal/Abdomen GI Exam: Soft, Non-Tender, Bowel Sounds Present Extremeties Extremities Exam: Trace Edema Assessment/Plan Problem List: (1) Hyponatremia ICD Codes: E87.1 - Hypo-osmolality and hyponatremia Status: Acute Plan: This may be likely due to underlying 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 I will give tolvaptan 15 mg daily Na 134 improved may dc Tolvaptan Follow BMP May use loop diuretics periodically s/o nephrology (2) COPD (chronic obstructive pulmonary disease) ICD Codes: J44.9 - Chronic obstructive pulmonary disease, unspecified Plan: Patient is dependent on home oxygen (3) HTN (hypertension) ICD Codes: I10 - Essential (primary) hypertension Plan: Continue to monitor (4) Acute and chronic respiratory failure ICD Codes: J96.20 - Acute and chronic respiratory failure, unspecified whether with hypoxia or hypercapnia Plan: On O2 Problem Qualifiers (1) COPD (chronic obstructive pulmonary disease): Nasima Tran MD Apr 18, 2017 14:17
--- NOTE | 2017-04-18 14:57 | RADRPT ---
EXAM DATE/TIME: 04/18/2017 13:53 [place] COMPARISON: CHEST SINGLE AP, April 15, 2017, 12:38. INDICATIONS : Respiratory failure. MEDICAL HISTORY : Cardiovascular disease. Congestive heart failure. Hypertension. SURGICAL HISTORY : Appendectomy. ENCOUNTER: Subsequent ACUITY: 4 - 6 days PAIN SCORE: 0/10 LOCATION: Bilateral chest FINDINGS: A single portable frontal view of the chest shows a left lower lobe infiltrate. This is new from the prior study. Tiny left effusion is new. Right lung is clear. Heart is normal in size. Right-sided shane tral line. CONCLUSION: No left lower lobe infiltrate and tiny left effusion. Ryan De Guzman Jr., MD on April 18, 2017 at 14:54 Board Certified Radiologist. This report was verified electronically.
[2017-04-18] MEDS: LEVOFLOXACIN 250 MG PREMIX INJ 50 ML IV SCH (15:44)
[2017-04-18] MEDS: ENOXAPARIN SODIUM 40 MG/0.4 ML SYRINGE SQ SCH (15:44)
--- NOTE | 2017-04-18 19:12 | HHI.PR ---
Subjective Remarks 72 YOWF with COPD exac,Hypercapnoic RF Extubated 04/15 Mild sob Had Techcardia CTA No PE, RLL mucous plugs? Breathing better " I am puffed up" Breathing better Objective Vital Signs Vital Signs Date Time Temp Pulse Resp B/P (MAP) Pulse Ox O2 Delivery O2 Flow Rate FiO2 04/18/17 18:00 116 04/18/17 16:00 112 42 120/60 (80) 95 04/18/17 16:00 112 04/18/17 15:00 107 25 120/58 (78) 88 04/18/17 14:00 99 04/18/17 14:00 99 19 118/59 (78) 92 04/18/17 13:00 102 31 122/59 (80) 91 04/18/17 12:00 112 04/18/17 12:00 97.9 112 28 114/58 (76) 97 04/18/17 11:00 110 33 111/55 (73) 95 04/18/17 10:00 119 20 132/65 (87) 94 04/18/17 10:00 119 04/18/17 09:01 121 40 83/66 (72) 92 04/18/17 08:35 97 Nasal Cannula 2.00 04/18/17 08:00 100 04/18/17 08:00 98.0 100 24 121/59 (79) 95 04/18/17 07:00 119 26 145/67 (93) 93 04/18/17 07:00 95 Nasal Cannula 2.00 04/18/17 06:00 108 04/18/17 06:00 108 23 121/64 (83) 95 04/18/17 05:00 97 20 123/59 (80) 95 04/18/17 04:01 95 30 04/18/17 04:00 99 Bi-Pap 30 04/18/17 04:00 98.1 98 20 119/59 (79) 94 04/18/17 04:00 98 04/18/17 02:00 95 04/18/17 01:06 94 30 04/18/17 00:00 98.3 93 19 104/54 (71) 96 04/18/17 00:00 93 04/18/17 00:00 94 Bi-Pap 30 04/17/17 22:02 95 30 04/17/17 22:00 89 04/17/17 21:45 96 30 04/17/17 20:00 98.0 121 42 118/58 (78) 95 04/17/17 20:00 95 Nasal Cannula 2.00 04/17/17 20:00 121 04/17/17 19:26 98 Nasal Cannula 2.00 I/O 04/17/17 04/17/17 04/17/17 04/18/17 04/18/17 04/18/17 07:00 15:00 23:00 07:00 15:00 23:00 Intake Total 360 ml 90 ml 850 ml 1000 ml 50 ml Output Total 1300 ml 1450 ml 1600 ml 1150 ml Balance -940 ml 90 ml -600 ml -600 ml -1100 ml Intake Oral 800 ml 1000 ml IV Total 360 ml 90 ml 50 ml 50 ml Output Urine Total 1300 ml 1450 ml 1600 ml 1150 ml # Bowel Movements 0 0 0 0 Result Diagram: 04/18/17 0415 04/18/17 1010 Objective Remarks GENERAL: MBMN WF,NAD SKIN: Warm and dry. HEAD: Normocephalic. EYES: No scleral icterus. No injection or drainage. NECK: Supple, trachea midline. No JVD or lymphadenopathy. CARDIOVASCULAR: Regular rate and rhythm without murmurs, gallops, or rubs. RESPIRATORY: Breath sounds equal bilaterally. No accessory muscle use. Exp rhonchi GASTROINTESTINAL: Abdomen soft, non-tender, nondistended. MUSCULOSKELETAL: No cyanosis, or edema. BACK: Nontender without obvious deformity. No CVA tenderness. A/P Assessment and Plan Hypercapnoic RF S/P Extubation COPD exac Hyponatremia PLAN: IV Solumedrol Aerosol nebs Cont Abx Monitor Lytes Mucomyst nebs Lasix 40 mg IVP X 1 Tru Robert MD Apr 18, 2017 19:12
[2017-04-18] MEDS ORDERED: FUROSEMIDE 40 MG/4 ML VIAL IV PUSH ONE (19:45)
[2017-04-18] MEDS: ASPIRIN 81 MG CHEW TAB CHEW SCH (20:11)
[2017-04-18] MEDS: RESP: ALBUTEROL 1.25 MG/3 ML NEB (PRN) NEB (21:27)
[2017-04-19] VITALS (16 sets, daily range): BP systolic 111–131; BP diastolic 56–89; PULSE 96–120; RESP 21–32; TEMP 97.2–98.4; O2SAT 91–100
[2017-04-19] MEDS: ALPRAZolam 0.25 MG TAB PO PRN (00:13)
[2017-04-19] MEDS: methylPREDNISolone SOD SUCC 40 MG/1 ML VIAL IV PUSH SCH ×3 (00:14→18:04)
[2017-04-19] MEDS: INSULIN NovoLIN REGULAR SUPPLEMENTAL SCALE SQ SCH ×6 (00:20→20:58)
[2017-04-19] MEDS: RESP: ACETYLCYSTEINE 20% 4 ML NEB NEB SCH ×4 (03:31→19:21)
[2017-04-19] MEDS: RESP: ALBUTEROL 1.25 MG/3 ML NEB (PRN) NEB ×4 (03:31→19:21)
[2017-04-19] MEDS: FAMOTIDINE 20 MG/2 ML VIAL IV PUSH SCH ×2 (05:58→18:04)
[2017-04-19 07:09] LABS: BICARBONATE 39.7 MEQ/L (21.0-32.0); POTASSIUM 4.1 MEQ/L (3.5-5.1)
[2017-04-19] MEDS: METOPROLOL TARTRATE 25 MG TAB PO SCH ×2 (08:08→20:51)
[2017-04-19] MEDS: PRAVASTATIN SOD 40 MG TAB PO SCH (08:08)
[2017-04-19] MEDS: BUDESONIDE-FORMOTEROL 160/4.5 MCG INHALER INH SCH ×2 (08:13→20:51)
--- NOTE | 2017-04-19 12:08 | HHI.CCPN ---
Subjective Remarks/Hospital Course The patient is a 72-year-old female with past medical history of COPD oxygen- dependent, hypertension and dyslipidemia who presented to [facility] ED with generalized weakness, lethargy and shortness of breath. Her initial ABG on two liters oxygen showed acute hypercapnic respiratory acidosis with a pH of 7.28, CO2 105, pAO2 119, bicarb 48 and saturation of 96%. She was placed on BiPap at 12/5 with 60% FIO2 and a repeat ABG showed worsening respiratory acidosis with a pH of 7.21, CO2 120. She was subsequently intubated with etomidate and succinylcholine and placed on full mechanical ventilation. Also, she was started on a Diprivan infusion for sedation. Her laboratory data was significant for hyponatremia with a sodium level of 117. In the ED, she was given bronchodilator treatments Solu-Medrol 125 mg IV push, magnesium replacement and 500 bolus of normal saline. When seen, the patient is sedated and intubated. Her last admission was in February and, at that time, she had a sodium level of 139. The patient was initially admitted to Dr. Auguste from [facility], however, after the patient was intubated in the ED critical care medicine was consulted for critical care management. 04/15 Patient remains sedated and intubated. She was placed on Levophed 10 mics Patient was given 3L boluses overnight ( 2L 1/2NS, 1L NS) Afebrile. 04/16 Patient is off Levophed s/p extubation yesterday. Awake/ alert.Tachycardic. Na level 125 this morning 04/17 No events overnight. CTA chest yesterday showed no PE, Na level 130 this morning. 04/18: Patient is extubated, tolerating well. BiPAP overnight. Na improved to 134. CTA showed ? RLL mucus plug. Check CXR in am 04/19: Good oxygen saturation on NC. Na 137. Patient is able to talk in full sentences Objective Vital Signs Date Time Temp Pulse Resp B/P (MAP) Pulse Ox O2 Delivery O2 Flow Rate FiO2 04/19/17 10:48 100 Nasal Cannula 2.00 04/19/17 10:00 110 04/19/17 08:00 97.6 23 131/87 (102) 04/18/17 04:01 30 Intake and Output 04/19/17 04/19/17 04/20/17 08:00 16:00 00:00 Intake Total 700 ml Output Total 1550 ml Balance -850 ml Result Diagram: 04/18/17 0415 04/19/17 [address] Angiography 04/16/17 0000 Signed Impressions: Service Date/Time: Sunday, April 16, 2017 15:47 - CONCLUSION: No evidence of pulmonary embolism. Obstructing process involving lower lobe segmental bronchus on the right. This is likely a mucous plug, however endobronchial mass is not excluded. Lewis Sykes MD Chest X-Ray 04/15/17 0000 Signed Impressions: Service Date/Time: Saturday, April 15, 2017 12:38 - CONCLUSION: Gastric tube is positioned within the stomach. Ryan Bearden MD Head CT 04/14/17 0000 Signed Impressions: Service Date/Time: Friday, April 14, 2017 13:18 - CONCLUSION: Normal examination for a patient of this age. No significant change has occurred. Tim Mcarthur MD Cervical Spine CT 04/14/17 0000 Signed Impressions: Service Date/Time: Friday, April 14, 2017 13:18 - CONCLUSION: 1. No acute fracture. Moderate degenerative disc disease in the lower cervical spine with mild AP canal stenosis as above. Tim Mcarthur MD Objective Remarks GENERAL: Patient is 72 yo lying in bed SKIN: Warm and dry. HEAD: Normocephalic. EYES: No scleral icterus. No injection or drainage. NECK: Supple, trachea midline. No JVD or lymphadenopathy. CARDIOVASCULAR: S1 S2 normal no murmur, no, gallops, or rubs. RESPIRATORY: Breath sounds equal bilaterally. Diminished. GASTROINTESTINAL: Abdomen soft, non-tender, nondistended. MUSCULOSKELETAL: No cyanosis, or edema. Neuro: Awake, alert oriented. No focal deficits A/P Assessment and Plan Assessment: 1. Resp failure -extubated 04/15/17 2. COPD exacerbation oxygen-dependent 3. Hyponatremia 4. Hyperlipidemia 5 Sinus tachycardia Plan Neuro: Awake and alert. CT brain in the ED negative for acute intracranial process. Pulm: Continue with oxygen and maintain saturation above 92%. Bronchodilators, Solu-Medrol 40mg IV q. Q8 NIPPV PRN for resp distress CTA chest negative for PE, likley mucous plug segmental bronchus on right. CXR 04/18 showed left lower lobe infiltrate, new chest x-ray ordered for today. Pulm is following- Dr. Robert. On Mucomyst, Symbicort, add IS. Added EzPAP acapella CV: Monitor HR and BP and maintain MAP>65 mmHg. Lopressor 12.5mg BID for rate control. Echo from February showed an EF of 55-60%. Continue with aspirin 81 mg daily, Pravachol 40 mg daily. : Monitor renal function Is and Os and electrolyte replacement per protocol. sodium level q. 4-hour, last Na 137. Renal is following- Dr. Tran- Given Lasix and Samsca x 1 dose given before Avoid over correction of sodium and maximum 9 mEq in 24 hours. On Tolvaptan 15mg daily ID: Continue with empiric abx (Levaquin) for COPD exacerbation and monitor for signs of infections( fever and WBC). GI: On Pepcid 10 mg IV q. 12 for GI prophylaxis. On soft thin diet Endo: SSI with Accu-Chek q. 4-hour for glycemic control Heme: Monitor CBC. GI prophylaxis with Pepcid and DVT prophylaxis with SCDs/ Lovenox 40 mg subcu daily. Lines: Right IJ CVP placed 04/15-DC today Level 2 An Saucedo MD Apr 19, 2017 12:08
[2017-04-19] MEDS: ENOXAPARIN SODIUM 40 MG/0.4 ML SYRINGE SQ SCH (13:47)
[2017-04-19] MEDS: LEVOFLOXACIN 250 MG PREMIX INJ 50 ML IV SCH (15:01)
--- NOTE | 2017-04-19 16:18 | RADRPT ---
EXAM DATE/TIME: 04/19/2017 15:03 [place] COMPARISON: CHEST SINGLE AP, April 18, 2017, 13:53. INDICATIONS : Respiratory disease. MEDICAL HISTORY : Chronic obstructive pulmonary disease. Hypertension SURGICAL HISTORY : None. ENCOUNTER: Initial ACUITY: 1 day PAIN SCORE: 0/10 LOCATION: Bilateral chest FINDINGS: A single portable frontal view the chest is a tiny left effusion left lower lobe intra-alveolar infil trate. This is unchanged. Lungs are hyperaerated. Right lung is clear. Heart is normal in size. CONCLUSION: Unchanged small left effusion and left lower lobe infiltrate. Ryan De Guzman Jr., MD on April 19, 2017 at 16:14 Board Certified Radiologist. This report was verified electronically.
--- NOTE | 2017-04-19 19:21 | HHI.PR ---
Subjective Remarks 72 YOWF with COPD exac,Hypercapnoic RF Extubated 04/15 Mild sob CTA No PE, RLL mucous plugs? Breathing better " Objective Vital Signs Vital Signs Date Time Temp Pulse Resp B/P (MAP) Pulse Ox O2 Delivery O2 Flow Rate FiO2 04/19/17 18:00 108 04/19/17 16:00 97.2 116 32 125/81 (96) 98 04/19/17 16:00 116 04/19/17 15:45 97 Nasal Cannula 2.00 04/19/17 14:00 116 04/19/17 12:00 97.7 103 26 123/60 (81) 96 04/19/17 12:00 103 04/19/17 10:48 100 Nasal Cannula 2.00 04/19/17 10:00 110 04/19/17 08:00 97.6 108 23 131/87 (102) 91 04/19/17 08:00 108 04/19/17 07:00 94 Nasal Cannula 2.00 04/19/17 06:00 100 04/19/17 04:00 98.4 109 25 122/64 (83) 97 04/19/17 04:00 109 04/19/17 02:00 105 04/19/17 00:00 97.8 103 21 113/56 (75) 97 04/19/17 00:00 103 04/18/17 22:00 117 04/18/17 21:30 96 Nasal Cannula 2.00 04/18/17 20:00 98.2 115 32 121/57 (78) 95 04/18/17 20:00 115 I/O 04/18/17 04/18/17 04/18/17 04/19/17 04/19/17 04/19/17 07:00 15:00 23:00 07:00 15:00 23:00 Intake Total 1000 ml 50 ml 700 ml Output Total 1600 ml 1150 ml 1550 ml 200 ml 0 ml Balance -600 ml -1100 ml -850 ml -200 ml 0 ml Intake Oral 1000 ml 700 ml IV Total 50 ml Output Urine Total 1600 ml 1150 ml 1550 ml 200 ml 0 ml # Bowel Movements 0 0 0 1 Result Diagram: 04/18/17 0415 04/19/17 0545 Objective Remarks GENERAL: MBMN WF,NAD SKIN: Warm and dry. HEAD: Normocephalic. EYES: No scleral icterus. No injection or drainage. NECK: Supple, trachea midline. No JVD or lymphadenopathy. CARDIOVASCULAR: Regular rate and rhythm without murmurs, gallops, or rubs. RESPIRATORY: Breath sounds equal bilaterally. No accessory muscle use. Exp rhonchi GASTROINTESTINAL: Abdomen soft, non-tender, nondistended. MUSCULOSKELETAL: No cyanosis, or edema. BACK: Nontender without obvious deformity. No CVA tenderness. A/P Assessment and Plan Hypercapnoic RF S/P Extubation COPD exac Hyponatremia PLAN: IV Solumedrol Aerosol nebs Cont Abx Monitor Lytes Mucomyst Tru Ospina MD Apr 19, 2017 19:21
[2017-04-19] MEDS: ASPIRIN 81 MG CHEW TAB CHEW SCH (20:51)
[2017-04-20] VITALS (10 sets, daily range): BP systolic 126–152; BP diastolic 62–78; PULSE 91–118; RESP 18–22; TEMP 96–97.8; O2SAT 92–97
[2017-04-20] MEDS: ALPRAZolam 0.25 MG TAB PO PRN ×2 (02:39→23:05)
[2017-04-20] MEDS: methylPREDNISolone SOD SUCC 40 MG/1 ML VIAL IV PUSH SCH ×2 (02:39→09:45)
[2017-04-20] MEDS: INSULIN NovoLIN REGULAR SUPPLEMENTAL SCALE SQ SCH ×6 (02:44→23:04)
[2017-04-20] MEDS: RESP: ACETYLCYSTEINE 20% 4 ML NEB NEB SCH ×4 (03:47→21:44)
[2017-04-20] MEDS: FAMOTIDINE 20 MG/2 ML VIAL IV PUSH SCH ×2 (05:55→17:28)
[2017-04-20] MEDS: BUDESONIDE-FORMOTEROL 160/4.5 MCG INHALER INH SCH ×2 (09:44→22:53)
[2017-04-20] MEDS: PRAVASTATIN SOD 40 MG TAB PO SCH (09:45)
[2017-04-20] MEDS: METOPROLOL TARTRATE 25 MG TAB PO SCH ×2 (09:45→22:52)
[2017-04-20] MEDS: SODIUM CHLORIDE 0.9% FLUSH 10 ML FLUSH IVF PRN (09:47)
--- NOTE | 2017-04-20 09:58 | HHI.PR ---
Subjective Remarks Follow-up visit COPD exacerbation, respiratory failure. Didn't examine today. Sitting up in bed. Reports she is feeling better. Shortness of breath continues only with exertion. She thinks that she is back at her baseline. Patient is O2 dependent at home 2 L nasal cannula being followed by movie shot camera operator Dr. Henderson. Patient states she is weak and feels that she isn't able to get out of bed. She has not seen physical therapy yet to work with her exercises. Denies fevers, chills, nausea, vomiting, diarrhea. Denies chest pain, palpitations, headaches, dizziness. Denies dysuria. Objective Vitals Vital Signs Date Time Temp Pulse Resp B/P (MAP) Pulse Ox O2 Delivery O2 Flow Rate FiO2 04/20/17 04:00 96.0 92 20 130/72 (91) 96 04/20/17 00:23 117 04/20/17 00:00 96.8 94 22 126/62 (83) 97 04/19/17 23:28 96 04/19/17 22:53 Nasal Cannula 2.00 04/19/17 22:00 108 04/19/17 20:00 97.8 112 29 111/89 (96) 94 04/19/17 20:00 112 04/19/17 19:24 95 Nasal Cannula 2.00 04/19/17 19:00 Nasal Cannula 2.00 04/19/17 18:00 108 04/19/17 16:00 97.2 116 32 125/81 (96) 98 04/19/17 16:00 116 04/19/17 15:45 97 Nasal Cannula 2.00 04/19/17 14:00 116 04/19/17 12:00 97.7 103 26 123/60 (81) 96 04/19/17 12:00 103 04/19/17 10:48 100 Nasal Cannula 2.00 04/19/17 10:00 110 I/O 04/19/17 04/19/17 04/19/17 04/20/17 04/20/17 04/20/17 07:00 15:00 23:00 07:00 15:00 23:00 Intake Total 700 ml 530 ml 120 ml Output Total 1550 ml 200 ml 200 ml Balance -850 ml -200 ml 330 ml 120 ml Intake Oral 700 ml 480 ml 120 ml IV Total 50 ml Output Urine Total 1550 ml 200 ml 200 ml # Voids 2 # Bowel Movements 0 1 1 Result Diagram: 04/18/17 0415 04/20/17 0455 Imaging Last Impressions Chest X-Ray 04/19/17 0000 Signed Impressions: Service Date/Time: March 15:03 - CONCLUSION: Unchanged small left effusion and left lower lobe infiltrate. Ryan De Guzman Jr., MD CT Angiography 04/16/17 0000 Signed Impressions: Service Date/Time: Sunday, April 16, 2017 15:47 - CONCLUSION: No evidence of pulmonary embolism. Obstructing process involving lower lobe segmental bronchus on the right. This is likely a mucous plug, however endobronchial mass is not excluded. Lewis Sykes MD Head CT 04/14/17 0000 Signed Impressions: Service Date/Time: Friday, April 14, 2017 13:18 - CONCLUSION: Normal examination for a patient of this age. No significant change has occurred. Tim Mcarthur MD Cervical Spine CT 04/14/17 0000 Signed Impressions: Service Date/Time: Friday, April 14, 2017 13:18 - CONCLUSION: 1. No acute fracture. Moderate degenerative disc disease in the lower cervical spine with mild AP canal stenosis as above. Tim Mcarthur MD Objective Remarks GENERAL: This is a well-nourished, well-developed patient, in no apparent distress. SKIN: Warm and dry. HEENT: Normocephalic. Pupils equal round and reactive. Nose without bleeding. Airway patent. Developing oral thrush NECK: Trachea midline. No JVD. Supple. CARDIOVASCULAR: Regular rate and rhythm without murmurs, gallops, or rubs. RESPIRATORY: Diminished bases. Fair air entry. No wheezes, rales, or rhonchi. GASTROINTESTINAL: Abdomen soft, non-tender, nondistended. Bowel Sounds normoactive x4. MUSCULOSKELETAL: Extremities without clubbing, cyanosis. Bilateral lower extremity +1 edema. NEUROLOGICAL: Awake and alert. Oriented to time, place, person. No focal neuro deficit. Moves all extremities. Normal speech. A/P Problem List: (1) Acute and chronic respiratory failure ICD Code: J96.20 - Acute and chronic respiratory failure, unspecified whether with hypoxia or hypercapnia (2) Hyponatremia ICD Code: E87.1 - Hypo-osmolality and hyponatremia Status: Acute Assessment and Plan Patient is 72-year-old female with past medical history of COPD O2 dependent, HTN, HLD who came into the hospital with generalized weakness, lethargy, shortness of breath increased. COPD exacerbation Respiratory failure - Patient was transferred from intensive care unit, as she clinically improves. She was intubated on admission and was extubated 04/16/17 - CTA chest negative for PE, likely mucous plugging segmental bronchus on the right. Chest x-ray 04/18/17 showed left upper lobe infiltrate, repeat chest x-ray 04/19/17 unchanged small left effusion and left lower lobe infiltrates. - Improving respiratory status. Continue duo nebs, Mucomyst nebulizer - Continue O2 nasal cannula - Incentive spirometer, Acapella. - Switch steroids to Medrol Dosepak by mouth. Continue Symbicort. - Switch IV Levaquin to by mouth Levaquin - Give one-time dose of IV Lasix 40 mg - Followed by pulmonology. If cleared by pulmonology may discharge patient to select she has an acceptance for pulmonary rehabilitation. Hyponatremia, came in with a sodium of 117 - Nephrology following, patient was given Lasix and some sputum times one dose prior, was on Tolvaptan 5 milligrams daily - Resolved. Sodium 136 HTN, chronic HLD, chronic - Occasional tachycardia noted probably related to anxiety versus COPD nebulization - Continue metoprolol 12.5 mg every 12 hours - Monitor BP trend DVT prop Lovenox GI prop Pepcid Discuss condition with patient, nursing, Dr. Canchola Discharge Planning Plan to discharge to select when cleared by pulmonology. Case management following. Attending Statement The exam, history, and the medical decision-making described in the above note were completed with the assistance of the mid-level provider. I reviewed and agree with the findings presented. I attest that I had a [id number] encounter with the patient on the same day, and personally performed and documented my assessment and findings in the medical record. Follow-up for acute on chronic respiratory failure/COPD exacerbation patient denies any shortness of breathing or cough. She stated that she is doing a lot better. Patient now on 1 L of oxygen. At home her baseline she is usually on 2 L of oxygen. Patient remains afebrile. Gen NAD no cough noted resp there to auscultation bilaterally with distant lung sounds CV RRR Acute on chronic respiratory failure, chronic oxygen dependent, COPD exacerbation Will transition to oral steroids. She can be discharged tomorrow. Janett Deshpande Apr 20, 2017 09:57 Eda Canchola MD Apr 20, 2017 14:04
[2017-04-20] MEDS: RESP: ALBUTEROL 1.25 MG/3 ML NEB (PRN) NEB ×3 (10:16→21:44)
[2017-04-20] MEDS: LEVOFLOXACIN 500 MG TAB PO SCH (11:08)
[2017-04-20] MEDS: methylPREDNISolone 4 MG TAB PO SCH ×3 (12:33→22:52)
[2017-04-20] MEDS ORDERED: FUROSEMIDE 40 MG/4 ML VIAL IV PUSH ONE (14:15)
[2017-04-20] MEDS ORDERED: POTASSIUM CHLORIDE 20 MEQ CONTROLLED RELEASE TAB PO ONE (14:30)
[2017-04-20] MEDS: FUROSEMIDE 40 MG TAB PO SCH (15:19)
[2017-04-20] MEDS: ENOXAPARIN SODIUM 40 MG/0.4 ML SYRINGE SQ SCH (15:20)
--- NOTE | 2017-04-20 18:46 | HHI.PR ---
Subjective Remarks 72 YOWF with COPD exac,Hypercapnoic RF Extubated 04/15 Mild SOB Weak Breathing better Objective Vital Signs Vital Signs Date Time Temp Pulse Resp B/P (MAP) Pulse Ox O2 Delivery O2 Flow Rate FiO2 04/20/17 16:00 97.5 98 18 148/70 (96) 92 04/20/17 12:00 97.8 91 18 139/68 (91) 92 04/20/17 10:19 95 Nasal Cannula 2.00 04/20/17 09:30 94 Nasal Cannula 1.00 Humidified 04/20/17 08:00 97.0 94 20 152/78 (102) 94 04/20/17 04:00 96.0 92 20 130/72 (91) 96 04/20/17 00:23 117 04/20/17 00:00 96.8 94 22 126/62 (83) 97 04/19/17 23:28 96 04/19/17 22:53 Nasal Cannula 2.00 04/19/17 22:00 108 04/19/17 20:00 97.8 112 29 111/89 (96) 94 04/19/17 20:00 112 04/19/17 19:24 95 Nasal Cannula 2.00 04/19/17 19:00 Nasal Cannula 2.00 I/O 04/19/17 04/19/17 04/19/17 04/20/17 04/20/17 04/20/17 07:00 15:00 23:00 07:00 15:00 23:00 Intake Total 700 ml 530 ml 120 ml 620 ml Output Total 1550 ml 200 ml 200 ml 400 ml Balance -850 ml -200 ml 330 ml 120 ml 220 ml Intake Oral 700 ml 480 ml 120 ml 620 ml IV Total 50 ml Output Urine Total 1550 ml 200 ml 200 ml 400 ml # Voids 2 # Bowel Movements 0 1 1 1 Result Diagram: 04/18/17 0415 04/20/17 0455 Objective Remarks GENERAL: MBMN WF,NAD SKIN: Warm and dry. HEAD: Normocephalic. EYES: No scleral icterus. No injection or drainage. NECK: Supple, trachea midline. No JVD or lymphadenopathy. CARDIOVASCULAR: Regular rate and rhythm without murmurs, gallops, or rubs. RESPIRATORY: Breath sounds equal bilaterally. No accessory muscle use. Exp rhonchi GASTROINTESTINAL: Abdomen soft, non-tender, nondistended. MUSCULOSKELETAL: No cyanosis, or edema. BACK: Nontender without obvious deformity. No CVA tenderness. A/P Assessment and Plan Hypercapnoic RF S/P Extubation COPD exac Hyponatremia PLAN: IV Solumedrol Aerosol nebs Cont Abx Monitor Lytes Mucomyst nebs Supplement 02 Stable from Pulm standpoint Available prn over weekend. Tru Robert MD Apr 20, 2017 18:46
[2017-04-20] MEDS: ASPIRIN 81 MG CHEW TAB CHEW SCH (22:53)
[2017-04-21] VITALS: BP 133/65; PULSE 99; RESP 22; TEMP 97.3; O2SAT 95
[2017-04-21 00:43] VITALS: PULSE 93
[2017-04-21] MEDS: INSULIN NovoLIN REGULAR SUPPLEMENTAL SCALE SQ SCH ×3 (00:47→09:00)
[2017-04-21 04:00] VITALS: BP 128/74; PULSE 93; RESP 20; TEMP 96.8; O2SAT 96
[2017-04-21] MEDS: FAMOTIDINE 20 MG/2 ML VIAL IV PUSH SCH (06:06)
[2017-04-21 08:00] VITALS: BP 143/71; PULSE 92; RESP 17; TEMP 96.6; O2SAT 95
[2017-04-21] MEDS: PRAVASTATIN SOD 40 MG TAB PO SCH (08:08)
[2017-04-21] MEDS: LEVOFLOXACIN 500 MG TAB PO SCH (08:08)
[2017-04-21] MEDS: FUROSEMIDE 40 MG TAB PO SCH (08:08)
[2017-04-21] MEDS: methylPREDNISolone 4 MG TAB PO SCH ×2 (08:08→12:13)
[2017-04-21] MEDS: METOPROLOL TARTRATE 25 MG TAB PO SCH (08:09)
[2017-04-21] MEDS: PILL SPLITTER OTHER PRN ×2 (08:10→09:57)
[2017-04-21] MEDS: BUDESONIDE-FORMOTEROL 160/4.5 MCG INHALER INH SCH (08:13)
--- NOTE | 2017-04-21 09:00 | HHI.PR ---
Subjective Remarks Follow-up visit COPD exacerbation, respiratory failure. Patient seen and examined today. Reports she is doing well. Continues to complain of bilateral lower extremity edema, states it looked worse than yesterday. Shortness of breath has been improving but still continues to have dyspnea with exertion. Plans for transfer to see as been discussed with patient extensively. Agrees with plan. Denies pain and discomfort. Denies chest pain, palpitations, headaches, dizziness. Denies fevers, chills, n/v/d. Denies hematuria, dysuria. Objective Vitals Vital Signs Date Time Temp Pulse Resp B/P (MAP) Pulse Ox O2 Delivery O2 Flow Rate FiO2 04/21/17 08:00 96.6 92 17 143/71 (95) 95 04/21/17 04:00 96.8 93 20 128/74 (92) 96 04/21/17 00:43 93 04/21/17 00:00 97.3 99 22 133/65 (87) 95 04/20/17 23:22 Nasal Cannula 1.00 04/20/17 21:49 95 Nasal Cannula 2.00 04/20/17 20:00 96.9 118 22 134/73 (93) 95 04/20/17 16:00 97.5 98 18 148/70 (96) 92 04/20/17 12:12 95 04/20/17 12:12 104 04/20/17 12:00 97.8 91 18 139/68 (91) 92 04/20/17 10:19 95 Nasal Cannula 2.00 04/20/17 09:30 94 Nasal Cannula 1.00 Humidified I/O 04/20/17 04/20/17 04/20/17 04/21/17 04/21/17 04/21/17 07:00 15:00 23:00 07:00 15:00 23:00 Intake Total 120 ml 620 ml 360 ml Output Total 400 ml 750 ml Balance 120 ml 220 ml -390 ml Intake Oral 120 ml 620 ml 360 ml Output Urine Total 400 ml 750 ml # Voids 2 # Bowel Movements 1 1 1 Result Diagram: 04/18/17 0415 04/20/17 0455 Imaging Last Impressions Chest X-Ray 04/19/17 0000 Signed Impressions: Service Date/Time: March 15:03 - CONCLUSION: Unchanged small left effusion and left lower lobe infiltrate. Ryan De Guzman Jr., MD CT Angiography 04/16/17 0000 Signed Impressions: Service Date/Time: Sunday, April 16, 2017 15:47 - CONCLUSION: No evidence of pulmonary embolism. Obstructing process involving lower lobe segmental bronchus on the right. This is likely a mucous plug, however endobronchial mass is not excluded. Lewis Sykes MD Head CT 04/14/17 0000 Signed Impressions: Service Date/Time: Friday, April 14, 2017 13:18 - CONCLUSION: Normal examination for a patient of this age. No significant change has occurred. Tim Mcarthur MD Cervical Spine CT 04/14/17 0000 Signed Impressions: Service Date/Time: Friday, April 14, 2017 13:18 - CONCLUSION: 1. No acute fracture. Moderate degenerative disc disease in the lower cervical spine with mild AP canal stenosis as above. Tim Mcarthur MD Objective Remarks GENERAL: This is a well-nourished, well-developed patient, in no apparent distress. SKIN: Warm and dry. HEENT: Normocephalic. Pupils equal round and reactive. Nose without bleeding. Airway patent. Developing oral thrush NECK: Trachea midline. No JVD. Supple. CARDIOVASCULAR: Regular rate and rhythm without murmurs, gallops, or rubs. RESPIRATORY: Diminished bases. Fair air entry. No wheezes, rales, or rhonchi. GASTROINTESTINAL: Abdomen soft, non-tender, nondistended. Bowel Sounds normoactive x4. MUSCULOSKELETAL: Extremities without clubbing, cyanosis. Bilateral lower extremity +1 edema. NEUROLOGICAL: Awake and alert. Oriented to time, place, person. No focal neuro deficit. Moves all extremities. Normal speech. A/P Problem List: (1) Acute and chronic respiratory failure ICD Code: J96.20 - Acute and chronic respiratory failure, unspecified whether with hypoxia or hypercapnia (2) Hyponatremia ICD Code: E87.1 - Hypo-osmolality and hyponatremia Status: Acute Assessment and Plan Patient is 72-year-old female with past medical history of COPD O2 dependent, HTN, HLD who came into the hospital with generalized weakness, lethargy, shortness of breath increased. COPD exacerbation Respiratory failure - Patient was transferred from intensive care unit, as she clinically improves. She was intubated on admission and was extubated 04/16/17 - CTA chest negative for PE, likely mucous plugging segmental bronchus on the right. Chest x-ray 04/18/17 showed left upper lobe infiltrate, repeat chest x-ray 04/19/17 unchanged small left effusion and left lower lobe infiltrates. - Improving respiratory status. Continue duo nebs, Mucomyst nebulizer - Continue O2 nasal cannula - Incentive spirometer, Acapella. - Switch steroids to Medrol Dosepak by mouth. Continue Symbicort. - Switch IV Levaquin to by mouth Levaquin - Lasix 40 mg BID PO xfew days. Monitor Creatinine - Followed by pulmonology. - Improved. Will transfer to [facility] for comprehensive rehabilitation Hyponatremia, came in with a sodium of 117 - Nephrology following, patient was given Lasix and some sputum times one dose prior, was on Tolvaptan 5 milligrams daily - Resolved. Sodium 136 HTN, chronic HLD, chronic - Occasional tachycardia noted probably related to anxiety versus COPD nebulization - Continue metoprolol 12.5 mg every 12 hours - Monitor BP trend DVT prop Lovenox GI prop Pepcid Discuss condition with patient, nursing, Dr. Canchola Discharge Planning Plan to discharge to [facility] today. Janett Deshpande Apr 21, 2017 09:00
--- NOTE | 2017-04-21 09:09 | HHI.DS ---
Discharge Summary Admission Date Apr 14, 2017 at 14:05 Discharge Date: Apr 21, 2017 Admitting Diagnosis COPD EXACERBATION, HYPONATREMIA (1) Acute and chronic respiratory failure ICD Code: J96.20 - Acute and chronic respiratory failure, unspecified whether with hypoxia or hypercapnia Diagnosis: Principal (2) Hyponatremia ICD Code: E87.1 - Hypo-osmolality and hyponatremia Diagnosis: Secondary Status: Acute Procedures None Brief History - From Admission patient is a 72 y/o female with history of COPD, oxygen dependent, hypertension and dyslipidemia who was brought to ER with worsening generalized weakness and sob. patient is lethargic, on BiPaP, and most of the information was obtained from the family at the bedside. she was admitted to this hospital about a month ago for COPD exacerbation and was discharged home. per the family over the past few weeks ' she's been getting worse '. she's had worsening weakness to the extent that she wasn't able to get out of the bed. in fact she reportedly had an unwitnessed fall earlier today; she was found sitting on the floor at the time. she uses ' oxygen as needed' although per the family she had to use her oxygen ' all the time' for the past two weeks. she's been lethargic recently and per the family she wasn't eating or drinking for the past few days. apparently because of the worsening edema of the legs , the dosage of her lasix was increased with no significant improvement.she was placed for BiPaP at the time of presentation to ER. CBC/BMP: 04/18/17 0415 04/20/17 0455 Significant Findings Laboratory Tests Test 04/18/17 10:10 04/19/17 05:45 04/20/17 04:55 Sodium Level 134 MEQ/L (136-145) Blood Urea Nitrogen 34 MG/DL (7-18) Random Glucose 120 MG/DL (74-106) Calcium Level 8.2 MG/DL (8.5-10.1) Chloride Level 94 MEQ/L (98-107) Carbon Dioxide Level 39.7 MEQ/L (21.0-32.0) Anion Gap 3 MEQ/L (5-15) Estimat Glomerular Filtration Rate 57 ML/MIN (>89) Imaging Last Impressions Chest X-Ray 04/19/17 Signed Impressions: Service Date/Time: March 15:03 - CONCLUSION: Unchanged small left effusion and left lower lobe infiltrate. Ryan De Guzman Jr., MD CT Angiography 04/16/17 Signed Impressions: Service Date/Time: Sunday, April 16, 2017 15:47 - CONCLUSION: No evidence of pulmonary embolism. Obstructing process involving lower lobe segmental bronchus on the right. This is likely a mucous plug, however endobronchial mass is not excluded. Lewis Sykes MD Head CT 04/14/17 Signed Impressions: Service Date/Time: Friday, April 14, 2017 13:18 - CONCLUSION: Normal examination for a patient of this age. No significant change has occurred. Tim Mcarthur MD Cervical Spine CT 04/14/17 Signed Impressions: Service Date/Time: Friday, April 14, 2017 13:18 - CONCLUSION: 1. No acute fracture. Moderate degenerative disc disease in the lower cervical spine with mild AP canal stenosis as above. Tim Mcarthur MD PE at Discharge GENERAL: This is a well-nourished, well-developed patient, in no apparent distress. SKIN: Warm and dry. HEENT: Normocephalic. Pupils equal round and reactive. Nose without bleeding. Airway patent. Developing oral thrush NECK: Trachea midline. No JVD. Supple. CARDIOVASCULAR: Regular rate and rhythm without murmurs, gallops, or rubs. RESPIRATORY: Diminished bases. Fair air entry. No wheezes, rales, or rhonchi. GASTROINTESTINAL: Abdomen soft, non-tender, nondistended. Bowel Sounds normoactive x4. MUSCULOSKELETAL: Extremities without clubbing, cyanosis. Bilateral lower extremity +1 edema. NEUROLOGICAL: Awake and alert. Oriented to time, place, person. No focal neuro deficit. Moves all extremities. Normal speech. Pt update on day of discharge Follow-up visit COPD exacerbation, respiratory failure. Patient seen and examined today. Reports she is doing well. Continues to complain of bilateral lower extremity edema, states it looked worse than yesterday. Shortness of breath has been improving but still continues to have dyspnea with exertion. Plans for transfer to see as been discussed with patient extensively. Agrees with plan. Denies pain and discomfort. Denies chest pain, palpitations, headaches, dizziness. Denies fevers, chills, n/v/d. Denies hematuria, dysuria. Hospital Course Patient is 72-year-old female with past medical history of COPD O2 dependent, HTN, HLD who came into the hospital with generalized weakness, lethargy, shortness of breath increased. Found to have COPD exacerbation with respiratory failure. Patient was in the intensive care unit where in she was intubated on admission and was extubated 04/16/17. CTA shows chest negative for PE, likely mucous plugging segmental bronchus on the right. Chest x-ray showed left upper lobe infiltrate, repeat chest x-ray 04/19/17 unchanged small left effusion and left lower lobe infiltrates. She clinically improved and was transferred to regular floor. She continues to be on O2 nasal cannula, with by mouth steroids and by mouth Levaquin. Patient is being followed by pulmonology, and has been deemed stable per their standpoint. Patient has bilateral lower extremity and upper extremity edema when she was transferred on the floor and was started on Lasix twice a day. She also had hyponatremia on admission were in it has resolved and the current sodium level is now 136. Patient has clinically improved but continues to have generalized weakness as a result of prolonged hospitalization. She would need comprehensive rehabilitation. We'll transfer to [facility] to facilitate this. Patient has met maximal benefits of hospitalization. Clinically stable for discharge to [facility]. Pt Condition on Discharge: Good Discharge Disposition: Rehab Inpatient Discharge Time: > 30 minutes Discharge Instructions DIET: Follow Instructions for: Heart Healthy Diet Activities you can perform: Regular-No Restrictions Follow up Referrals: PCP Follow-up Pulmonology New Medications: Albuterol Neb (Albuterol Neb) 1.25 Mg/3 Ml Neb 1.25 MG NEB Q2HR NEB PRN for SHORTNESS OF BREATH for 30 Days, #20 NEBULE Furosemide (Furosemide) 40 Mg Tab 40 MG PO DAILY for edema, #5 TAB Levofloxacin (Levaquin) 500 Mg Tablet 500 MG PO DAILY for Infection for 7 Days, #7 TAB Methylprednisolone (Medrol) 4 Mg Tab 4 MG PO DAILY@08,12,18 for Broncospasm, #2 TAB Start 04/26/17 Methylprednisolone (Medrol) 4 Mg Tab 8 MG PO HS for Broncospasm, #1 TAB Start 04/21/17 2100 Methylprednisolone (Medrol) 4 Mg Tab 4 MG PO DAILY@08,12,18,21 for Broncospasm, #4 TAB Start 04/22/17 Methylprednisolone (Medrol) 4 Mg Tab 4 MG PO DAILY@08,12,21 for Broncospasm, #3 TAB Start 04/23/17 Methylprednisolone (Medrol) 4 Mg Tab 4 MG PO DAILY@08,21 for Broncospasm, #2 TAB Start 04/24/17 Methylprednisolone (Medrol) 4 Mg Tab 4 MG PO DAILY@08 for Broncospasm, #1 TAB Start 04/25/17 Metoprolol Tartrate (Metoprolol Tartrate) 25 Mg Tab 12.5 MG PO Q12HR for Blood Pressure Management, #60 TAB [Budeson-Formot 160-4.5 Mg Inh] () 60 PUFF AERO 2 PUFF INH Q12HR for COPD management, #1 INHALER Changed Medications: Nystatin Liq (Nystatin Liq) 100,000 unit/ml Susp 5 ML SWISH-SWAL QID for Infection for 7 Days, #150 ML 0 Refills (Changed from: Use for 7 days.) Use for 7 days. Continued Medications: Alprazolam (Xanax) 0.25 Mg Tab 0.25 MG PO TID PRN for ANXIETY, TAB 0 Refills Aspirin (Aspirin) 81 Mg Chew 81 MG CHEW HS, TAB 0 Refills Cholecalciferol (Vitamin D-1000) 1,000 Unit Tab 2000 UNITS PO DAILY for Nutritional Supplement, #1 BOTTLE 0 Refills Fish Oil-Cholecalciferol ([place]-3 Fish Oil/Vitamin) 1,000-1,000 Mg Cap 1 CAP PO DAILY for Nutritional Supplement, CAP 0 Refills Green Tea Poipu Extract (Green Tea) 250 Mg Capsule 500 BID Oxygen (O2) (Oxygen (O2)) Device LITER JASEN.CANULA CONTINUOUS for Prevent Hypoxemia, #2 Oxygen Concentrator Portable Gaseous 2 L/min via Nasal Canula Continuous For 99 months Simvastatin (Simvastatin) 20 Mg Tab 20 MG PO DAILY for Cholesterol Management, #30 TAB 0 Refills Tiotropium-Olodaterol Inh (Stiolto Respimat Inh) 2.5-2.5 Mcg/Act Aero 2 PUFF INH DAILY for COPD, #1 INHALER 0 Refills Discontinued Medications: Albuterol Neb (Albuterol Neb) 2.5 Mg/3 Ml Neb 2.5 MG INH Q2HR NEB PRN for SHORTNESS OF BREATH MDD 4 for 30 Days, #30 NEBULE As directed Calcium Carbonate (Calcium) 600 Mg Calcium (1500 Mg) Tab BID Losartan (Losartan) 100 Mg Tab 100 MG PO DAILY for Blood Pressure Management, #30 TAB 3 Refills Methylprednisolone (Medrol) 4 Mg Tab 4 MG PO DAILY for COPD, #80 TAB 0 Refills 4 tablets bid x 4 days then 3 tablets bid x 4 days 2 tablets bid x 3 days 1 tablet bid x 3 days then 1 tablet daily x 5 days Metoprolol Tartrate (Metoprolol Tartrate) 50 Mg Tab 50 MG PO BID, #60 TAB 3 Refills Potassium Chloride ER (Potassium Chloride ER) 20 Meq Tab 20 MEQ PO DAILY for Electrolyte Replacement, #5 TAB 0 Refills Janett Deshpande Apr 21, 2017 09:09 Eda Canchola MD Apr 22, 2017 16:15
[2017-04-21] MEDS ORDERED: FAMOTIDINE 20 MG TAB PO SCH (09:15)
[2017-04-21] MEDS ORDERED: ALBU1.25 NEB (09:26)
[2017-04-21] MEDS ORDERED: METO25TA3 PO (09:26)
[2017-04-21] MEDS ORDERED: FURO40TA PO (09:26)
[2017-04-21] MEDS ORDERED: LEVA500T33 PO (09:26)
[2017-04-21] MEDS ORDERED: NYST1000 SWISH-SWAL (09:26)
[2017-04-21] MEDS ORDERED: Budeson-Formot 160-4.5 Mg Inh INH (09:26)
[2017-04-21] MEDS ORDERED: MEDR4TAB PO ×6 (09:26)
--- NOTE | 2017-04-21 09:28 | HHI.DCPOC ---
Discharge Care Plan Diagnosis: (1) HTN (hypertension) (2) Acute and chronic respiratory failure (3) COPD (chronic obstructive pulmonary disease) Your Health Problems Are: Difficulty with ADL Swelling Leg Swelling Shortness of Breath Goals to Promote Your Health * To prevent worsening of your condition and complications * To maintain your health at the optimal level Directions to Meet Your Goals Take your medications as prescribed Follow your dietary instruction Follow activity as directed Keep your appointments as scheduled Take your immunizations and boosters as scheduled If your symptoms worsen call your PCP, if no PCP go to Urgent Care Center or Emergency Room Smoking is Dangerous to Your Health. Avoid second hand smoke Call the 24-hour hour crisis hotline for domestic abuse at Janett Deshpande Apr 21, 2017 9:28 am
[2017-04-21] MEDS ORDERED: NYSTATIN SUSP 500,000 U/5 ML CUP SWISH-SWAL SCH (13:00)
[2017-04-21] MEDS ORDERED: methylPREDNISolone 4 MG TAB PO SCH (21:00)
[2017-04-22] MEDS ORDERED: methylPREDNISolone 4 MG TAB PO SCH (08:00)
[2017-04-23] MEDS ORDERED: methylPREDNISolone 4 MG TAB PO SCH (08:00)
[2017-04-24] MEDS ORDERED: methylPREDNISolone 4 MG TAB PO SCH (08:00)
[2017-04-25] MEDS ORDERED: methylPREDNISolone 4 MG TAB PO SCH (08:00)
== END 2017-04-21 12:30 | DRG 208 ==
LOC: NEPE 10:49 → MERGE 14:05 → NEDA 14:05 → HIME 16:26 → N07A 04-19 22:43
PROVIDERS: ADMIT Family Medicine; ATTEND Family Medicine
PROC: 5A1935Z Respiratory Ventilation, Less than 24 Consecutive Hours (ICD-10-PCS; principal; 2017-04-14)
PROC: 0BH17EZ Insertion of Endotracheal Airway into Trachea, Via Natural or Artificial Opening (ICD-10-PCS; 2017-04-14)
PROC: 5A09357 Assistance with Respiratory Ventilation, Less than 24 Consecutive Hours, Continuous Positive Airway Pressure (ICD-10-PCS; 2017-04-14)
PROC: 02HV33Z Insertion of Infusion Device into Superior Vena Cava, Percutaneous Approach (ICD-10-PCS; 2017-04-14)
PROC: B548ZZA Ultrasonography of Superior Vena Cava, Guidance (ICD-10-PCS; 2017-04-14)
DX: J96.22 Acute and chronic respiratory failure with hypercapnia (principal); E87.2 Acidosis; J44.1 Chronic obstructive pulmonary disease with (acute) exacerbation; I95.9 Hypotension, unspecified; E22.2 Syndrome of inappropriate secretion of antidiuretic hormone; J98.11 Atelectasis; S00.83XA Contusion of other part of head, initial encounter; Z99.81 Dependence on supplemental oxygen; E83.42 Hypomagnesemia; I10 Essential (primary) hypertension; E78.5 Hyperlipidemia, unspecified; R00.0 Tachycardia, unspecified; E16.2 Hypoglycemia, unspecified; J98.09 Other diseases of bronchus, not elsewhere classified; W19.XXXA Unspecified fall, initial encounter; Z66 Do not resuscitate; Z87.891 Personal history of nicotine dependence
CPT/HCPCS: 36556; 36600; 51702; 70450; 71010; 71275; 72125; 76937; 80048; 80053; 81001; 82550; 82552; 82805; 82948; 83605; 83735; 83880; 83930; 83935; 84100; 84132; 84295; 84300; 84443; 84484; 85025; 87040; 87641; 93005; 94002; 94003; 94150; 94640; 94664; 94667; 94668; 96365; 96375; J0330; J1120; J1650; J1940; J1956; J2250; J2920; J2930; J3010; J3475; J3480; J7030; J7040; J7042; J7050; J7509; J7608; J7613; Q9967

== ENCOUNTER 2017-06-04 09:25 | Day surgery (SDC) | payer MEDICARE, OTHER ==
[~2017-06-04] VITALS: Ht 167.6 cm; Wt 70.9 kg
[~2017-06-04 09:25] MED LIST changes: +ACET325T15 PO; -ALBU0.08 INH; +ALBU1.25 NEB; +ALPR.25 PO; +Budeson-Formot 160-4.5 Mg Inh INH; -CALC600T5; +COMMODE 3-IN-11 MIS; -FURO1TAB62 PO; +FURO20TA PO; -GREE250C2; +HOSP BED1; -LORT7.5T3 PO; -LOSA100T PO; -MEDR4TAB PO; +METO-309 PO; -METO50TA PO; -NYST1000 SWISH-SWAL; -POTA-163 PO; -VITA1000 PO; +WHEEMIS3
[2017-06-04 09:45] VITALS: BP 124/78; PULSE 74; RESP 20; TEMP 97.5; O2SAT 92
[2017-06-04] MEDS ORDERED: POVIDONE IODINE 5% (ANTISEPSIS KIT) 4 APPLICATIONS EACH NARE PRN (10:00)
[2017-06-04] MEDS ORDERED: SODIUM CHLORID 0.9% 500 ML IV PRN (10:00)
[2017-06-04] MEDS ORDERED: METOPROLOL TARTRATE 25 MG TAB PO PRN (10:00)
[2017-06-04] MEDS ORDERED: CHLORHEXIDINE GLUCONATE 2 % 1 PACK (2 CLOTHS) TOPICAL PRN (10:00)
[2017-06-04] MEDS ORDERED: SODIUM CHLOR 0.9% 1000 ML INJ 1,000 ML IV SCH (10:00)
[2017-06-04] MEDS ORDERED: INSULIN HUMAN REGULAR 1,000 UNITS/10 ML VIAL SQ PRN (10:00)
[2017-06-04] MEDS ORDERED: LACTATED RINGER'S 1000 ML IV PRN (10:00)
[2017-06-04] MEDS ORDERED: CALC1TAB87 PO (10:39)
[2017-06-04 10:48] LABS: HEMATOCRIT 34.7 % (35.0-46.0); HEMOGLOBIN 11.4 GM/DL (11.6-15.3); MEAN CELL VOLUME 91.3 FL (80.0-100.0); MEAN CORPUSCULAR HEMOGLOBIN 30.1 PG (27.0-34.0); MEAN PLATELET VOLUME 8.8 FL (7.0-11.0); PLATELET COUNT 215 TH/MM3 (150-450); RED CELL DISTRIBUTION WIDTH 16.3 % (11.6-17.2)
[2017-06-04 11:05] LABS: BLOOD UREA NITROGEN 16 MG/DL (7-18); CALCIUM 9.6 MG/DL (8.5-10.1); CHLORIDE 85 MEQ/L (98-107); CREATININE 0.63 MG/DL (0.50-1.00); GLOMERULAR FILTRATION RATE 93 ML/MIN (>89); GLUCOSE,RANDOM 91 MG/DL (74-106); SODIUM (NA) 134 MEQ/L (136-145)
[2017-06-04 11:09] LABS: BICARBONATE GREATER THAN 45.0 MEQ/L (21.0-32.0)
[2017-06-04] MEDS ORDERED: SUGAMMADEX SODIUM 200 MG/2 ML VIAL IV PUSH ONE (11:51)
[2017-06-04 11:53] LABS: BANDS 4 % (0-6); LYMPHOCYTES 3 % (9-44); MONOCYTES 9 % (0-8); NEUTROPHIL # MANUAL DIFF 8.5 TH/MM3 (1.8-7.7); POLYS (SEG NEUTROPHILS) 81 % (16-70)
[2017-06-04] MEDS ORDERED: RESP: ALBUTEROL 2.5 MG/3 ML NEB (PRN) NEB (12:00)
[2017-06-04] MEDS ORDERED: *RESP: ALBUTEROL 2.5 MG/3 ML NEB (PRN) PERIprocedural Use ONLY NEB ONE (12:12)
--- NOTE | 2017-06-04 12:25 | MP ---
cc: MIGEL LYNCH MD, JOHN DATE OF SURGERY 06/04/2017 PROCEDURE Fiberoptic bronchoscopy with brushings, washings and lavage. PREOPERATIVE DIAGNOSIS Chronic right lower lobe atelectasis and COPD. POSTOPERATIVE DIAGNOSIS Chronic right lower lobe atelectasis and COPD. ANESTHESIA General with intubation. SURGEON Dr. Lewis Orona. PROCEDURE AND FINDINGS The patient was intubated under general anesthesia following which the Olympus IT180 bronchoscope was used to visualized the bronchi. The scope was advanced via the endotracheal tube into the trachea. The trachea and chanud appeared normal. The scope was then advanced into the right main stem and right upper lobe segmental bronchi. These bronchi demonstrated a few mucoid secretions and no endobronchial masses were seen. Saline washings were done. Next, the right middle lobe segmental bronchi were visualized. These bronchi demonstrated no gross endobronchial lesions. Saline washings were done. Next, the scope was advanced into the right lower lobe segmental bronchi. These bronchi demonstrated moderate endobronchitis with mucoid secretions and mild mucosal edema but no endobronchial masses were seen. Brushings were done for micro and for cytology. Saline washings and lavage were carried out until clear. There was no bleeding observed. Next, the scope was advanced into the left main stem and left upper lobe segmental bronchi. The left upper lobe segmental bronchi demonstrated mucoid secretions and mild endobronchitis but no endobronchial masses were seen. Next, the left lower lobe segmental bronchi were visualized. These demonstrated mild endobronchitis and a few mucoid secretions. No endobronchial lesions were seen. Saline washings were done and lavage was done. The procedure was then terminated. The patient tolerated the procedure well. Lewis Orona MD JVD/JASBIR /11:56 AM /12:14 PM
--- NOTE | 2017-06-04 14:16 | RADRPT ---
EXAM DATE/TIME: 06/04/2017 12:35 [facility] COMPARISON: CHEST SINGLE AP, May 02, 2017, 17:22. INDICATIONS : Post bronchoscopy. MEDICAL HISTORY : Hypertension. Chronic obstructive pulmonary disease. SURGICAL HISTORY : None. ENCOUNTER: Initial ACUITY: 1 day PAIN SCORE: Non-responsive. LOCATION: Bilateral chest FINDINGS: Portable AP view of the chest demonstrates a normal-sized cardiac silhouette. No effusion, consolidat ion, or pneumothorax is identified. The bones and soft tissues demonstrate no acute finding. CONCLUSION: No acute cardiopulmonary abnormality is identified. Lewis Villarreal MD on June 04, 2017 at 14:12 Board Certified Radiologist. This report was verified electronically.
[2017-06-04 14:40] VITALS: BP 129/71; PULSE 76; RESP 16; TEMP 97.2; O2SAT 95
[2017-06-04 15:10] VITALS: BP 123/70; PULSE 75; RESP 17; O2SAT 97
[2017-06-04 15:40] VITALS: BP 124/72; PULSE 74; RESP 16; O2SAT 97
[2017-06-04 16:10] VITALS: BP 126/68; PULSE 76; RESP 17; O2SAT 97
[2017-06-04 16:40] VITALS: BP 113/66; PULSE 78; RESP 18; O2SAT 94
== END 2017-06-04 17:15 | disposition home or self-care (01) ==
LOC: HROP 09:25 → HRIP 09:25 → HROP 17:15
DX: J98.11 Atelectasis (principal); J44.9 Chronic obstructive pulmonary disease, unspecified; J96.90 Respiratory failure, unspecified, unspecified whether with hypoxia or hypercapnia; I10 Essential (primary) hypertension; E78.5 Hyperlipidemia, unspecified; F17.200 Nicotine dependence, unspecified, uncomplicated; Z01.818 Encounter for other preprocedural examination
CPT/HCPCS: 00520; 31623; 71045; 80048; 85007; 85027; 85610; 85730; 87015; 87070; 87071; 87102; 87116; 87205; 87206; 88112; 88305; 94640; 94664; J7613